=== PATIENT | male | born 1950 | race Caucasian/White ===

== ENCOUNTER 2021-03-12 17:18 | Inpatient (IN) | payer OTHER, MEDICARE, SELFPAY ==
[2021-03-12] VITALS (14 sets, daily range): BP systolic 165–189; BP diastolic 81–101; PULSE 87–104; RESP 16–24; TEMP 36.6–37.2; O2SAT 93–100; BMI 29.0; BMI 27.6
--- NOTE | 2021-03-12 18:11 | EKG12_ITS ---
Test Reason : AM EKG Blood Pressure : / mmHG Vent. Rate : 071 BPM Atrial Rate : 071 BPM P-R Int : 154 ms QRS Dur : 096 ms QT Int : 424 ms P-R-T Axes : 048 000 099 degrees QTc Int : 460 ms Sinus rhythm with occasional Premature ventricular complexes Anterior infarct , age undetermined Abnormal ECG When compared with ECG of 14-MAR-2021 05:30, MANUAL COMPARISON REQUIRED, DATA IS UNCONFIRMED Confirmed by CAMILLE PENA, SETH ([id number]), continuity editor ROBERT LYON ([id number]) on 03/18/2021 8:50:43 AM Referred By: DAYNA Confirmed By:SETH OBRIEN MD
--- NOTE | 2021-03-12 18:15 | RAD_ITS ---
STUDY: X-RAY CHEST REASON FOR EXAM: Male, 70 years old. Dyspnea TECHNIQUE: Single frontal view of the chest. COMPARISON: 08/08/13. FINDINGS: Cardiac silhouette prominent. Pulmonary vascularity unremarkable. Aorta unremarkable. Minimal opacity at the medial right base may represent atelectasis versus pneumonia as clinically indicated. Prominence of the left hilum is nonspecific and may be projectional. No pleural effusions. Upper abdomen unremarkable. Osseous structures intact. No pneumothorax. RAD/Chest 1 View (Portable) IMPRESSION: Minimal opacity at the medial right base may represent atelectasis versus pneumonia as clinically indicated. Prominence of the left hilum is nonspecific and may be projectional due to rotation. Consider chest CT for further evaluation as clinically indicated. Electronically Signed: Dick Cummings MD at 18:32 EDT Tel , Service support ,
--- NOTE | 2021-03-12 18:15 | NURSING ---
NO OLD EKGS
[2021-03-12] MEDS: Ipratropium/Albuterol Sulfate 3 ML AMPUL.NEB INHALATION (18:25)
[2021-03-12 18:31] LABS: Absolute Lymphocyte Count 1.35 X10^3/uL (0.83-4.51); Absolute Neutrophil Count 5.8 X10^3/uL (2.0-7.7); Basophil# 0.06 X10^3/uL; Basophil% 0.7 % (0-1); Eosinophil# 0.36 X10^3/uL; Eosinophils% 4.4 % (0-5); Hematocrit 34.7 % (40-54); Hemoglobin 12.2 g/dL (13.0-16.5); Lymphocyte # 1.35 X10^3/ul (0.83-4.51); Lymphocyte % 16.4 % (19-41); Mean Corp Hgb Conc 35.2 g/dL (32-36); Mean Corpuscular Hgb 30.3 pg (27.0-32.0); Mean Corpuscular Volume 86.3 fL (80-94); Mean Platelet Vol. 10.7 fl (6.2-12.0); Monocyte# 0.65 X10^3/uL; Monocyte% 7.9 % (0-10); NRBC Flagged by Analyzer 0 % (0-5); Neutrophil # 5.79 X10^3/uL (2.7-7.7); Neutrophil % 70.4 % (47-70); Platelet Count 428 K/mm3 (150-450); RBC Distribution Width CV 11.7 % (11.6-14.6); RBC Distribution Width SD 36.7 fl (35.1-43.9); Red Blood Count 4.02 M/mm3 (4.6-6.2); White Blood Count 8.2 K/mm3 (4.4-11.0)
[2021-03-12 18:41] LABS: ALB/GLOB Ratio 0.8 RATIO (0.9-2.4); AST(SGOT) 13 U/L (15-37); Alanine Aminotransfer ALT/SGPT 21 U/L (16-61); Albumin, Serum 3.7 g/dL (3.2-5.0); Alkaline Phosphatase 108 U/L (45-117); Anion Gap 9 (5-15); BUN 33 mg/dL (7-18); BUN/Creat Ratio 15.3 RATIO (10-20); Calcium,Total 9.4 mg/dL (8.5-10.1); Chloride 104 mmol/L (98-107); Creatinine, Serum 2.16 mg/dL (0.70-1.30); EST Glomerular Filtration Rate 32 mL/min (>60); Est Glom Filt Rate - Afr Amer 39 mL/min (>60); Estimated Creatinine Clearance 29.91 ml/min; Globulin 4.5 g/dL (2.2-4.2); Glucose 258 mg/dL (74-106); Potassium 3.4 mmol/L (3.5-5.1); Protein, Total 8.2 g/dL (6.4-8.2); Sodium Level 136 mmol/L (136-145)
--- NOTE | 2021-03-12 21:13 | PCM.HP.STD ---
HPI - General General Date of Admission: 03/12/21 Chief Complaint: Shortness of breath HPI Narrative ROSI CORNELIUS, is a 70 M with a significant history of hypertension and diabetes who presents with 3 to 4-day history of progressively worsening shortness of breath on exertion. On the day of presentation he also had a transient left sided chest pain that he describes as noticeable and nonradiating. He denies fatigue; orthopnea; paroxysmal nocturnal dyspnea; anemia; and weight changes. He went to his PCPs office and he was instructed to come to the emergency department. [facility] Medical History Diabetes Hypertension Non-smoker Home Medications metformin 500 mg PO DAILY 03/12/21 [History Last Taken Unknown] Allergy/AdvReac Type Severity Reaction Status Date / Time Sulfa (Sulfonamide Allergy Rash Verified 03/12/21 17:24 Antibiotics) Surgical History History of herniorrhaphy Social History Smoking Status: Never smoker ROS ROS Narrative 12 point review of system is negative except as stated in HPI. Vital Signs Vital Signs Vital Signs: 03/12/21 17:19 03/12/21 17:24 03/12/21 17:27 Temperature 98.2 F Temperature Source Oral Pulse Rate 99 95 Respiratory Rate 22 H 24 H Respiratory Effort Normal Respiratory Depth Shallow Respiratory Pattern Tachypnea Blood Pressure 166/88 H 166/88 H Blood Pressure Mean 114 114 Pulse Ox 96 96 Oxygen Delivery Method Room Air Room Air Room Air 03/12/21 18:25 03/12/21 18:28 03/12/21 18:29 Temperature Temperature Source Pulse Rate 91 98 Respiratory Rate 21 H 16 Respiratory Effort Respiratory Depth Respiratory Pattern Blood Pressure 165/83 H Blood Pressure Mean 110 Pulse Ox 97 100 Oxygen Delivery Method Room Air 03/12/21 18:45 03/12/21 19:48 03/12/21 20:59 Temperature 98.5 F 98.9 F 97.9 F Temperature Source Oral Temporal Temporal Pulse Rate 89 87 87 Respiratory Rate 17 16 16 Respiratory Effort Respiratory Depth Respiratory Pattern Blood Pressure 167/81 H 166/85 H 169/87 H Blood Pressure Mean 109 112 114 Pulse Ox 94 93 98 Oxygen Delivery Method Room Air Room Air Room Air Physical Exam Narrative Alert and oriented x3 Nontraumatic; normocephalic Lung clear to auscultate Tachycardia; heart sounds S1-S2. No murmur, gallop or rubs. Abdomen bowel sounds present soft, nontender nondistended Extremity without edema cyanosis or clubbing. Lab / Micro Data Result Diagrams: 03/12/21 17:27 03/12/21 17:27 Labs: Laboratory Results - last 24 hr 03/12/21 03/12/21 03/12/21 17:27 17:27 18:25 WBC 8.2 RBC 4.02 L Hgb 12.2 L Hct 34.7 L MCV 86.3 MCH 30.3 MCHC 35.2 RDW Std Deviation 36.7 RDW Coeff of Joey 11.7 Plt Count 428 MPV 10.7 Immature Gran % (Auto) 0.200 Neut % (Auto) 70.4 H Lymph % (Auto) 16.4 L [place] % (Auto) 7.9 Eos % (Auto) 4.4 Baso % (Auto) 0.7 Absolute Neuts (auto) 5.8 Absolute Lymphs (auto) 1.35 Nucleated RBC % 0 Sodium 136 Potassium 3.4 L Chloride 104 Carbon Dioxide 23.0 Anion Gap 9 BUN 33 H Creatinine 2.16 H Estim Creat Clear Calc 29.91 Est GFR (MDRD) Af Amer 39 L Est GFR (MDRD) Non-Af 32 L BUN/Creatinine Ratio 15.3 Glucose 258 H Lactic Acid 1.0 Calcium 9.4 Total Bilirubin 0.30 AST 13 L ALT 21 Alkaline Phosphatase 108 Troponin I 0.295 H Total Protein 8.2 Albumin 3.7 Globulin 4.5 H Albumin/Globulin Ratio 0.8 L Micro: Microbiology 03/12/21 18:50 SARS-CoV-2 Antigen (Rapid) - Final Nasal Secretion Radiology Impression Chest X-Ray 03/12/21 18:15 IMPRESSION: Minimal opacity at the medial right base may represent atelectasis versus pneumonia as clinically indicated. Prominence of the left hilum is nonspecific and may be projectional due to rotation. Consider chest CT for further evaluation as clinically indicated. Electronically Signed: Dick Cummings MD at 18:32 EDT Tel , Service support , Assessment & Plan Assessment/Plan (1) Dyspnea on exertion: (2) Acute kidney injury: (3) Chest pain: QUALIFIERS: Chest pain type: unspecified Qualified Code(s): R07.9 - Chest pain, unspecified (4) Heart failure: (5) Hypertensive emergency: (6) Diabetes: PLAN: Place on a monitored bed at PCU With the latest impression of chest x-ray: Minimal opacity at the medial right base may represent atelectasis versus pneumonia as clinically indicated. Prominence of the left ilium is nonspecific and may be projectional due to rotation. Actual CXR image was independently visualized. I agree with the radiologist interpretation. However patient has no white count or fever. Unlikely pneumonia. Incentive spirometer ordered for atelectasis. Actual EKG tracing was independently visualized. EKG tracing showed Q waves in leads V1 to V3. Aspirin, full dose given at the emergency department. ASA 81 mg p.o. daily ordered We will check lipid panel. Serial cardiac enzymes ordered Stat EKG as needed for chest pain Initial troponin was in the indeterminate range. Trend troponin. Stress test in the AM if the cardiac enzymes are stable. Check echocardiogram. BNP ordered and returned elevated. Lasix 40 mg IV push x1 and then Lasix 40 mg IV push twice daily. Supplement potassium. Daily weights. Strict intake and output. Fluid restriction Trend BMP. Check D-dimer. Hypertensive emergency?hydralazine as needed ordered. Lasix as above. Diabetes mellitus Patient with hyperglycemia on presentation Metformin held. Accu-Chek Q6H with correction scale insulin ordered. DVT prophylaxis scd Visit Charges Inpatient E&M: 44602 Init Hosp L3
--- NOTE | 2021-03-12 21:23 | EDS_ITS ---
HPI History of Present Illness Chief Complaint: Shortness of Breath Informant: patient Onset/Context/Timing Onset: Days (2) Context: gradual Timing: Continuous Quality: Positive for Dyspnea on exertion Associated Symptoms Negative for cough, rhinorrhea, ear pain, fever, sore throat or chills Chest Pain: Positive for Intermittent (Patient had a sharp pain that only lasted a few seconds) Narrative Narrative: Patient presents with shortness of breath that is been getting worse over the past 2 days. Patient states his breathing is worse with any exertion. Patient states nothing seems to help with it. Patient states he did have an episode of chest pain that lasted only a few seconds. Patient describes it as sharp. Patient states he also felt lightheaded. Patient denies any cough. Patient denies any fevers or chills. Patient denies any nausea or vomiting. Patient denies any PE risk factors. PE Risk Factors: Negative for Cancer, OCP + Smoking + > 35, Prior DVT or PE, Recent immobilization, Recent surgery and Recent travel [facility] Medical History Diabetes Hypertension Non-smoker Home Medications metformin 500 mg PO DAILY 03/12/21 [History Last Taken Unknown] Allergy/AdvReac Type Severity Reaction Status Date / Time Sulfa (Sulfonamide Allergy Rash Verified 03/12/21 17:24 Antibiotics) Surgical History (Updated 03/12/21 @ 21:[address] Benedict Moore DO) History of herniorrhaphy Social History Smoking Status: Never smoker ROS ROS ED Constitutional Constitutional ED: Denies chills or fever(s) Eyes Eyes: Denies blurry vision or change in vision ENT ENT ED: Denies ear pain, rhinorrhea or sore throat Cardiovascular Cardiovascular: Reports chest pain; Denies palpitations Respiratory/Chest Respiratory/Chest: Reports dyspnea; Denies cough Gastrointestinal Gastrointestinal: Denies nausea or vomiting Genitourinary Genitourinary ED: Denies dysuria or hematuria Musculoskeletal Musculoskeletal: Denies back pain or neck pain Integumentary Denies abscess or rash Neurologic Neurologic: Denies headache(s), paresthesias or weakness Allergic/Immunologic Allergic/Immunologic ED: Denies mouth swelling or urticaria EXAM Physical Exam Const Vital Signs: 03/12/21 17:19 03/12/21 17:24 03/12/21 17:27 Temperature 98.2 F Temperature Source Oral Pulse Rate 99 95 Respiratory Rate 22 H 24 H Respiratory Effort Normal Respiratory Depth Shallow Respiratory Pattern Tachypnea Blood Pressure 166/88 H 166/88 H Blood Pressure Mean 114 114 Pulse Ox 96 96 Oxygen Delivery Method Room Air Room Air Room Air 03/12/21 18:25 03/12/21 18:28 03/12/21 18:29 Temperature Temperature Source Pulse Rate 91 98 Respiratory Rate 21 H 16 Respiratory Effort Respiratory Depth Respiratory Pattern Blood Pressure 165/83 H Blood Pressure Mean 110 Pulse Ox 97 100 Oxygen Delivery Method Room Air 03/12/21 18:45 03/12/21 19:48 03/12/21 20:59 Temperature 98.5 F 98.9 F 97.9 F Temperature Source Oral Temporal Temporal Pulse Rate 89 87 87 Respiratory Rate 17 16 16 Respiratory Effort Respiratory Depth Respiratory Pattern Blood Pressure 167/81 H 166/85 H 169/87 H Blood Pressure Mean 109 112 114 Pulse Ox 94 93 98 Oxygen Delivery Method Room Air Room Air Room Air Positive well nourished and well developed General Appearance ED: well developed HEENT Reports moist mucous membranes atraumatic Neck supple and no JVD Resp normal respiratory effort Auscultation: wheezes Cardio regular rate and regular rhythm GI non-tender and non-distended Auscultation: normoactive bowel sounds Palpation: soft Neuro oriented x3, CN's II-XII intact bilaterally and no sensory deficits noted Sensorium / Orientation: alert Motor Exam: strength 5/5 throughout Psych mental status grossly normal MDM MDM MDM Narrative Medical decision making narrative: EKG was obtained. On my interpretation, there is a normal sinus rhythm with a rate of 98. There are nonspecific ST-T wave changes in I, aVL, V5, and V6. CBC was within normal limits. Comprehensive metabolic profile showed an elevated creatinine of 2.16 and BUN of 33. Troponin was elevated at 0.295. Lactate was normal. Portable chest x-ray was obtained. There is 1 view. On my interpretation, there is atelectasis versus infiltrate in the right base. Radiologist also interpreted the x-ray and agrees. Patient denies any history of kidney injuries. Patient was advised of his findings. I recommended admission to the hospital. Patient is agreeable with this. Case was discussed with the hospitalist. He will be in to evaluate the patient and admit the patient to his service. Patient understood and was agreeable with the plan. All questions were answered. Lab Data Attestation: I reviewed the patient's lab results. Labs: Laboratory Results - last 24 hr 03/12/21 03/12/21 03/12/21 17:27 17:27 18:25 WBC 8.2 RBC 4.02 L Hgb 12.2 L Hct 34.7 L MCV 86.3 MCH 30.3 MCHC 35.2 RDW Std Deviation 36.7 RDW Coeff of Joey 11.7 Plt Count 428 MPV 10.7 Immature Gran % (Auto) 0.200 Neut % (Auto) 70.4 H Lymph % (Auto) 16.4 L [place] % (Auto) 7.9 Eos % (Auto) 4.4 Baso % (Auto) 0.7 Absolute Neuts (auto) 5.8 Absolute Lymphs (auto) 1.35 Nucleated RBC % 0 Sodium 136 Potassium 3.4 L Chloride 104 Carbon Dioxide 23.0 Anion Gap 9 BUN 33 H Creatinine 2.16 H Estim Creat Clear Calc 29.91 Est GFR (MDRD) Af Amer 39 L Est GFR (MDRD) Non-Af 32 L BUN/Creatinine Ratio 15.3 Glucose 258 H Lactic Acid 1.0 Calcium 9.4 Total Bilirubin 0.30 AST 13 L ALT 21 Alkaline Phosphatase 108 Troponin I 0.295 H Total Protein 8.2 Albumin 3.7 Globulin 4.5 H Albumin/Globulin Ratio 0.8 L Radiography Chest X-Ray - ED: 1 View, Read by ED Physician, Read by Radiologist and - (Atelectasis versus infiltrate in the right base) Diagnostic Testing: Radiology Impression Chest X-Ray 03/12/21 18:15 IMPRESSION: Minimal opacity at the medial right base may represent atelectasis versus pneumonia as clinically indicated. Prominence of the left hilum is nonspecific and may be projectional due to rotation. Consider chest CT for further evaluation as clinically indicated. Electronically Signed: Dick Cummings MD at 18:32 EDT Tel , Service support , EKG Initial EKG: Attestation: I personally reviewed and interpreted this EKG as follows: Interpretation: Sinus Rhythm (98) and Non-Specific ST Changes Prior: No Prior Treatment and Re-Evaluation Vital Sign Attestation:: Vital signs were reviewed prior to admission. Vital signs are stable. Discharge Plan Triage Chief Complaint: Shortness of Breath ED Provider: Benedict Moore Dx/Rx/DC Orders Clinical Impression: Acute kidney injury, Elevated troponin Primary Care Provider: Brayden Marley Disposition Disposition: Acute Care [facility]
[2021-03-12 21:34] LABS: BNP,B-Type NATRIURETIC PEPTIDE 430.1 pg/mL (0-100)
[2021-03-12] MEDS: Aspirin 81 MG TAB.CHEW 324 MG PO (22:02)
[2021-03-12 22:26] LABS: D-Dimer Quantitative (DVT/PE) 1.01 FEU/ug/m (0.27-0.49)
--- NOTE | 2021-03-12 22:47 | ECHOCS_ITS ---
Reason For Study: DYSPNEA/SOB Procedure This was a 2D Doppler, Color Flow transthoracic echocardiogram. The study was technically difficult. Exam performed portable in patient room. Left Ventricle Normal LV size. The estimated ejection fraction is 60 %. No evidence for diastolic dysfunction. No regional wall motion abnormalities noted. Right Ventricle Normal RV size. Normal systolic function. Atria Normal left atrium. Normal right atrium. No doppler evidence for ASD. Mitral Valve There is no mitral valve stenosis. Mild (1+) mitral valve insufficiency. Tricuspid Valve There is no tricuspid stenosis. Trivial tricuspid valve insufficiency. Unable to estimate RV systolic pressure due to insufficient tricuspid regurgitant envelope. Aortic Valve Trisinus/trileaflet aortic valve. There is no aortic stenosis. No aortic valve insufficiency. Pulmonic Valve There is no pulmonic valvular stenosis. No pulmonic valve insufficiency. Great Vessels Normal aortic root. Pericardium/Pleural No pericardial effusion. Medication Diluted definity 4ml given slow IV push to enhance endocardial definition. MMode/2D Measurements & Calculations LVIDd: 4.9 cm IVSd: 1.3 cm Ao root diam: 3.1 cm LVIDs: 3.6 cm LVPWd: 1.3 cm RVDd: 3.7 cm FS: 26.7 % LAV(MOD-bp): 40.8 ml LVAd ap4: 33.9 cm2 SV(MOD-sp4): 47.6 ml LAV(MOD-bp) Indexed: 20.8 ml/m2 LVLd ap4: 8.5 cm LAV(MOD-sp2): 53.1 ml EDV(MOD-sp4): 111.6 ml LAV(MOD-sp4): 31.0 ml EDV(sp4-el): 115.2 ml LVAs ap4: 24.7 cm2 LVLs ap4: 8.1 cm ESV(MOD-sp4): 64.0 ml ESV(sp4-el): 63.7 ml EF(MOD-sp4): 42.6 % EF(sp4-el): 44.7 % SV(sp4-el): 51.5 ml LA A4 area: 14.7 cm2 LA dimension(2D): 4.1 cm RA A4 area: 12.7 cm2 Time Measurements MV dec time: 0.21 sec Doppler Measurements & Calculations MV E max leandro: 91.9 cm/sec Lat Peak E' Leandro: 10.6 cm/sec Med Peak E' Leandro: 8.8 cm/sec MV A max leandro: 82.8 cm/sec E/E' lat: 8.7 E/E' med: 10.4 MV E/A: 1.1 Ao V2 max: 122.2 cm/sec LV V1 max: 85.5 cm/sec PA V2 max: 94.5 cm/sec Ao max P.0 mmHg LV V1 max P.9 mmHg TR max leandro: 330.9 cm/sec TR max P.8 mmHg ECHO/Echo Complete W/ Contrast Interpretation Summary The estimated ejection fraction is 60 %. No evidence for diastolic dysfunction. Mild (1+) mitral valve insufficiency. The study was technically difficult. Contrast injection was performed. Ordering Physician: Roberto Fernandez Referring Physician: KATHY BERNABE Performed By: Rolanda Caro RDCS
--- NOTE | 2021-03-12 22:47 | EKG12_ITS ---
Test Reason : DYSRHYTHMIA Blood Pressure : / mmHG Vent. Rate : 085 BPM Atrial Rate : 085 BPM P-R Int : 150 ms QRS Dur : 088 ms QT Int : 394 ms P-R-T Axes : 030 012 143 degrees QTc Int : 468 ms Normal sinus rhythm Left ventricular hypertrophy with repolarization abnormality Abnormal ECG When compared with ECG of 12-MAR-2021 17:25, MANUAL COMPARISON REQUIRED, DATA IS UNCONFIRMED Confirmed by CHARLES PENA, SONYA ([id number]), film or videotape editor ROBERT LYON ([id number]) on 03/17/2021 1:24:27 PM Referred By: OKSANA Confirmed By:ABEBE SOTO MD
[2021-03-12] MEDS: Furosemide 40 MG/4 ML Vial IV (23:18)
[2021-03-12] MEDS: 0.9% Saline Lock 10 ML Syringe IV (23:19)
[2021-03-12] MEDS: Potassium Chloride Oral Tablet 20 MEQ 40 MEQ PO (23:20)
[2021-03-12] MEDS: hydrALAZINE 20 MG/ML Vial 5 MG IV (23:20)
[2021-03-12] MEDS: Insulin Lispro 100 UNIT/ML INSULN.PEN SC (23:34)
[2021-03-12 23:35] LABS: Bedside Glucose 202 mg/dL (70-110)
[2021-03-13] VITALS (13 sets, daily range): BP systolic 152–170; BP diastolic 78–94; PULSE 71–96; RESP 17–18; TEMP 36.6–37; O2SAT 93–100
--- NOTE | 2021-03-13 01:13 | EKG12_ITS ---
Test Reason : AM EKG Blood Pressure : / mmHG Vent. Rate : 067 BPM Atrial Rate : 067 BPM P-R Int : 160 ms QRS Dur : 088 ms QT Int : 436 ms P-R-T Axes : 034 005 116 degrees QTc Int : 460 ms Sinus rhythm with occasional Premature ventricular complexes Left ventricular hypertrophy Inferior infarct , age undetermined Septal MO, age undetermined, cannot be excluded Nonspecific ST and T wave abnormality Abnormal ECG Confirmed by HENRIETTA PENA, CHANTE ([id number]), editor in chief newspaper ROBERT LYON ([id number]) on 03/19/2021 9:12:47 AM Referred By: OKSANA Confirmed By:CHANTE SHRESTHA MD
[2021-03-13 05:06] LABS: Absolute Lymphocyte Count 1.55 X10^3/uL (0.83-4.51); Absolute Neutrophil Count 4.6 X10^3/uL (2.0-7.7); Basophil# 0.07 X10^3/uL; Eosinophil# 0.36 X10^3/uL; Hematocrit 30.7 % (40-54); Hemoglobin 10.6 g/dL (13.0-16.5); Lymphocyte # 1.55 X10^3/ul (0.83-4.51); Lymphocyte % 21.6 % (19-41); Mean Corp Hgb Conc 34.5 g/dL (32-36); Mean Corpuscular Hgb 29.7 pg (27.0-32.0); Monocyte# 0.57 X10^3/uL; Monocyte% 7.9 % (0-10); NRBC Flagged by Analyzer 0 % (0-5); Neutrophil # 4.61 X10^3/uL (2.7-7.7); Neutrophil % 64.1 % (47-70); Platelet Count 344 K/mm3 (150-450); RBC Distribution Width CV 11.7 % (11.6-14.6); RBC Distribution Width SD 36.5 fl (35.1-43.9); Red Blood Count 3.57 M/mm3 (4.6-6.2); White Blood Count 7.2 K/mm3 (4.4-11.0)
[2021-03-13 05:24] LABS: Anion Gap 8 (5-15); BUN 31 mg/dL (7-18); BUN/Creat Ratio 16.6 RATIO (10-20); Calcium,Total 8.8 mg/dL (8.5-10.1); Chloride 108 mmol/L (98-107); Cholesterol 211 mg/dL (200); Creatinine, Serum 1.87 mg/dL (0.70-1.30); EST Glomerular Filtration Rate 38 mL/min (>60); Est Glom Filt Rate - Afr Amer 46 mL/min (>60); Estimated Creatinine Clearance 34.55 ml/min; Glucose 175 mg/dL (74-106); High Density Lipoprotein 32 mg/dL; Potassium 4.1 mmol/L (3.5-5.1); Sodium Level 140 mmol/L (136-145); Triglycerides 283 mg/dL; Very Low Density Lipoprotein 57 mg/dL (5-40)
[2021-03-13] MEDS: Aspirin E.C. 81 MG Tablet PO (06:34)
[2021-03-13 06:41] LABS: Bedside Glucose 189 mg/dL (70-110)
--- NOTE | 2021-03-13 08:15 | CT_ITS ---
STUDY: CTA CHEST REASON FOR EXAM: Male, 70 years old. suspect pe RADIATION DOSAGE (If Supplied By Facility): CTDIvol = ( 11.82 ) mGy, DLP = ( 448.32 ) mGycm TECHNIQUE: The examination was performed with the intravenous administration of IV 100mL Isovue-370. Post-processing of the angiographic images was performed, with multiplanar reformation and 3D reconstruction. Individualized dose optimization techniques were used for this CT. COMPARISON: None. FINDINGS: Normal enhancement of the main pulmonary artery and right and left pulmonary arteries. Normal enhancement of the bilateral peripheral pulmonary arteries. There is no demonstrated pulmonary embolism. There is atherosclerotic calcification of the aortic arch with tortuosity. There is no demonstrated aortic dissection. Normal heart and pericardium. There are calcifications of the coronary arteries. Normal mediastinum. Normal hilar regions. Normal visualized trachea and bronchi. The lungs are well expanded. Normal pulmonary parenchyma. Small bilateral pleural effusions. Normal chest wall structures. Normal osseous structures. Normal visualized upper abdomen. CT/CTA Chest W/WO Contrast IMPRESSION: 1. No central or segmental pulmonary embolism. 2. Trace bilateral pleural effusions. Electronically Signed: Jose G Thorne MD ([place]) at 9:29 EDT , Service support ,
[2021-03-13 08:49] LABS: Thyroid Stim Hormone (TSH) 3.95 uIU/mL (0.358-3.74)
[2021-03-13] MEDS: Potassium Chloride Oral Tablet 20 MEQ 40 MEQ PO (09:19)
[2021-03-13] MEDS: Furosemide 40 MG/4 ML Vial IV ×2 (09:20→18:07)
[2021-03-13] MEDS: 0.9% Saline Lock 10 ML Syringe IV ×2 (09:20→18:07)
[2021-03-13] MEDS: Enoxaparin 30 MG/0.3 ML Syringe SC (09:20)
[2021-03-13] MEDS: hydrALAZINE 20 MG/ML Vial 5 MG IV ×2 (09:20→18:07)
[2021-03-13] MEDS: Insulin Lispro 100 UNIT/ML INSULN.PEN SC ×3 (10:51→21:32)
[2021-03-13 10:56] LABS: Bedside Glucose 190 mg/dL (70-110)
--- NOTE | 2021-03-13 11:25 | CASEMGMT ---
ROSALVA CHARLES assessment: Face to Face with patient for initial transition planning/care coordination assessment. ROSALVA CHARLES introduced self and role at [facility], pt voices understanding and consents to assessment. Pt is sitting up in bed in no distress on 2L nc. Pt is A/Ox4 and answers all questions appropriately. Care providers, pharmacy, and demographics verified. Presentation: Pt went to PCP for SOB and EKG showed [place], sent to ED Admitting dx: HF PCP: Chuck REED Specialists: Pt states no current specialists. [place] [place] [place] Living Will/HPOA: Pt states has LW/HPOA and is aware that they are not on file at [facility]. Pt states his son, Traci Jacques, is HPOA. LNOK: Traci Jacuqes, son/HPOA Living Arrangements: Pt states lives alone in mobile home with 3 steps in and states no concerns at home. Pt states is independent with ADL's. Transportation: Pt states drives self and states no transportation concerns. DME/HHC: Pt states no current DME or need for any. Pt states no hx of HHC or SNF in the past. Pt states no concerns with going home at time of discharge. Pt is retired. Pt states does not smoke cigarettes or drink ETOH. Pt states no further concerns/needs. CM to follow for any further discharge planning/needs. Advised pt to ask for CM if any further questions/concerns/needs arise, voices understanding. Pt Goal: Home Plan[place] ROSALVA CHARLES
--- NOTE | 2021-03-13 12:03 | PCM.PN.HOSP ---
Documented by User: Sherice Rausch MARKETING OPERATIONS MANAGER, MARKETING OPERATIONS MANAGER-C 03/13/21 12:15 Subjective Subjective: Patient seen and examined. Reports improvement in shortness of breath. Remains on supplemental oxygen. Denies chest pain. Objective Data Objective Data Vital Signs: Vital Signs Temp Pulse Resp BP Pulse Ox 97.9 F 82 18 170/91 H 99 03/13/21 09:15 03/13/21 09:20 03/13/21 09:15 03/13/21 09:20 03/13/21 09:15 Oxygen Flow Rate (L/min) 2 Oxygen Delivery Method Nasal Cannula Weight: 179 lb 3.773 oz Body Mass Index (BMI) 27.6 Intake & Output: Intake and Output for Last 24 Hours 03/11/21 03/12/21 03/13/21 23:59 23:59 23:59 Intake Total 50 / 50 0 / 0 Output Total 1250 / 1250 Balance 50 / 50 -1250 / -1250 Lab / Micro Data Result Diagrams: 03/13/21 05:00 03/13/21 05:00 Labs: Laboratory Results - last 24 hr 03/12/21 03/12/21 03/12/21 17:27 17:27 17:27 WBC 8.2 RBC 4.02 L Hgb 12.2 L Hct 34.7 L MCV 86.3 MCH 30.3 MCHC 35.2 RDW Std Deviation 36.7 RDW Coeff of Joey 11.7 Plt Count 428 MPV 10.7 Immature Gran % (Auto) 0.200 Neut % (Auto) 70.4 H Lymph % (Auto) 16.4 L [place] % (Auto) 7.9 Eos % (Auto) 4.4 Baso % (Auto) 0.7 Absolute Neuts (auto) 5.8 Absolute Lymphs (auto) 1.35 Nucleated RBC % 0 D-Dimer Quant (PE/DVT) 1.01 H* Sodium 136 Potassium 3.4 L Chloride 104 Carbon Dioxide 23.0 Anion Gap 9 BUN 33 H Creatinine 2.16 H Estim Creat Clear Calc 29.91 Est GFR (MDRD) Af Amer 39 L Est GFR (MDRD) Non-Af 32 L BUN/Creatinine Ratio 15.3 Glucose 258 H Lactic Acid Calcium 9.4 Magnesium Total Bilirubin 0.30 AST 13 L ALT 21 Alkaline Phosphatase 108 Troponin I 0.295 H B-Natriuretic Peptide Total Protein 8.2 Albumin 3.7 Globulin 4.5 H Albumin/Globulin Ratio 0.8 L Triglycerides Cholesterol LDL Cholesterol VLDL Cholesterol HDL Cholesterol TSH POC Glucose 03/12/21 03/12/21 03/12/21 18:20 18:25 23:02 WBC RBC Hgb Hct MCV MCH MCHC RDW Std Deviation RDW Coeff of Joey Plt Count MPV Immature Gran % (Auto) Neut % (Auto) Lymph % (Auto) [place] % (Auto) Eos % (Auto) Baso % (Auto) Absolute Neuts (auto) Absolute Lymphs (auto) Nucleated RBC % D-Dimer Quant (PE/DVT) Sodium Potassium Chloride Carbon Dioxide Anion Gap BUN Creatinine Estim Creat Clear Calc Est GFR (MDRD) Af Amer Est GFR (MDRD) Non-Af BUN/Creatinine Ratio Glucose Lactic Acid 1.0 Calcium Magnesium Total Bilirubin AST ALT Alkaline Phosphatase Troponin I 0.326 H B-Natriuretic Peptide 430.1 H Total Protein Albumin Globulin Albumin/Globulin Ratio Triglycerides Cholesterol LDL Cholesterol VLDL Cholesterol HDL Cholesterol TSH POC Glucose 03/12/21 03/13/21 03/13/21 23:30 01:45 05:00 WBC RBC Hgb Hct MCV MCH MCHC RDW Std Deviation RDW Coeff of Joey Plt Count MPV Immature Gran % (Auto) Neut % (Auto) Lymph % (Auto) [place] % (Auto) Eos % (Auto) Baso % (Auto) Absolute Neuts (auto) Absolute Lymphs (auto) Nucleated RBC % D-Dimer Quant (PE/DVT) Sodium 140 Potassium 4.1 Chloride 108 H Carbon Dioxide 24.0 Anion Gap 8 BUN 31 H Creatinine 1.87 H Estim Creat Clear Calc 34.55 Est GFR (MDRD) Af Amer 46 L Est GFR (MDRD) Non-Af 38 L BUN/Creatinine Ratio 16.6 Glucose 175 H Lactic Acid Calcium 8.8 Magnesium Total Bilirubin AST ALT Alkaline Phosphatase Troponin I 0.322 H 0.304 H B-Natriuretic Peptide Total Protein Albumin Globulin Albumin/Globulin Ratio Triglycerides 283 H Cholesterol 211 H LDL Cholesterol 122 VLDL Cholesterol 57 H HDL Cholesterol 32 L TSH POC Glucose 202 H 03/13/21 03/13/21 03/13/21 05:00 05:00 06:33 WBC 7.2 RBC 3.57 L Hgb 10.6 L Hct 30.7 L MCV 86.0 MCH 29.7 MCHC 34.5 RDW Std Deviation 36.5 RDW Coeff of Joey 11.7 Plt Count 344 MPV 10.0 Immature Gran % (Auto) 0.400 Neut % (Auto) 64.1 Lymph % (Auto) 21.6 [place] % (Auto) 7.9 Eos % (Auto) 5.0 Baso % (Auto) 1.0 Absolute Neuts (auto) 4.6 Absolute Lymphs (auto) 1.55 Nucleated RBC % 0 D-Dimer Quant (PE/DVT) Sodium Potassium Chloride Carbon Dioxide Anion Gap BUN Creatinine Estim Creat Clear Calc Est GFR (MDRD) Af Amer Est GFR (MDRD) Non-Af BUN/Creatinine Ratio Glucose Lactic Acid Calcium Magnesium 2.0 Total Bilirubin AST ALT Alkaline Phosphatase Troponin I B-Natriuretic Peptide Total Protein Albumin Globulin Albumin/Globulin Ratio Triglycerides Cholesterol LDL Cholesterol VLDL Cholesterol HDL Cholesterol TSH 3.95 H POC Glucose 189 H 03/13/21 10:50 WBC RBC Hgb Hct MCV MCH MCHC RDW Std Deviation RDW Coeff of Joey Plt Count MPV Immature Gran % (Auto) Neut % (Auto) Lymph % (Auto) [place] % (Auto) Eos % (Auto) Baso % (Auto) Absolute Neuts (auto) Absolute Lymphs (auto) Nucleated RBC % D-Dimer Quant (PE/DVT) Sodium Potassium Chloride Carbon Dioxide Anion Gap BUN Creatinine Estim Creat Clear Calc Est GFR (MDRD) Af Amer Est GFR (MDRD) Non-Af BUN/Creatinine Ratio Glucose Lactic Acid Calcium Magnesium Total Bilirubin AST ALT Alkaline Phosphatase Troponin I B-Natriuretic Peptide Total Protein Albumin Globulin Albumin/Globulin Ratio Triglycerides Cholesterol LDL Cholesterol VLDL Cholesterol HDL Cholesterol TSH POC Glucose 190 H Micro: Microbiology 03/12/21 18:50 Nasal Secretion SARS-CoV-2 Antigen (Rapid) - Final Radiography Diagnostic Testing: Radiology Impression Chest X-Ray 03/12/21 18:15 IMPRESSION: Minimal opacity at the medial right base may represent atelectasis versus pneumonia as clinically indicated. Prominence of the left hilum is nonspecific and may be projectional due to rotation. Consider chest CT for further evaluation as clinically indicated. Electronically Signed: Dick Cummings MD at 18:32 EDT Tel , Service support , Chest CTA 03/13/21 08:15 IMPRESSION: 1. No central or segmental pulmonary embolism. 2. Trace bilateral pleural effusions. Electronically Signed: Jose G Thorne MD ([place]) at 9:29 EDT , Service support , Physical Exam Const alert, oriented x3 and no apparent distress Orientation / Consciousness: awake, oriented to person, oriented to place and oriented to time HEENT normocephalic and moist oral mucous membranes Eyes PERRL, EOMs intact bilaterally and conjunctivae normal Neck no lymphadenopathy Resp normal respiratory effort and clear to auscultation bilaterally Cardio regular rate, regular rhythm and no murmurs Peripheral Pulses: pulses 2+ throughout GI normal to inspection, nondistended, normoactive bowel sounds, non-tender and non-distended Extremity normal to inspection Skin no rashes or lesions noted Lesions: no lesions Rashes: no rashes Trauma: no lacerations or abrasions Neuro oriented x3 Sensorium / Orientation: awake and alert Psych affect normal Assessment & Plan Assessment/Plan (1) Acute kidney injury: (2) Dyspnea on exertion: PLAN: 1. Acute CHF, unknown subtype-BNP 430. CTA negative for PE, trace bilateral pleural effusions. IV Lasix. Strict I&O. Daily weight. Echocardiogram pending. Continue supplement oxygen to maintain O2 at above 90%. Not documented to be hypoxic. 2. Elevated troponin-plan for stress test in a.m. following further diuresis. Continue aspirin. 3. Hypertension, markedly elevated-HCTZ/lisinopril held due to acute kidney injury. Continue amlodipine. As needed hydralazine for systolic blood pressure greater than 160 4. Acute kidney injury-improving with diuresis, trend BMP. 5. Type 2 diabetes mellitus-oral regimen on hold. Accu-Cheks with sliding scale insulin. 6. Hyperlipidemia-continue statin. DVT prophylaxis- Lovenox sc This patient was seen by KIMBERLY Hernandez under the supervision of Dr. Gonzalez. Documented by User: Dr. Lynn Gonzalez MD 03/13/21 16:14 Objective Data Lab / Micro Data Result Diagrams: 03/13/21 05:00 03/13/21 05:00
[2021-03-13] MEDS: amLODIPine 10 MG Tablet PO (12:31)
--- NOTE | 2021-03-13 15:48 | CASEMGMT ---
According to [employer]'s website, the following tertiary facilities are in network: [facility], [facility], [place], [facility], [facility], [facility], [facility] and .
[2021-03-13 16:45] LABS: Bedside Glucose 162 mg/dL (70-110)
[2021-03-13 18:00] LABS: T4 Free Direct 0.95 ng/dL (0.76-1.46)
[2021-03-13] MEDS: Atorvastatin Calcium 20 MG Tablet PO (21:32)
[2021-03-13] MEDS: Carvedilol 6.25 MG Tablet PO (21:32)
[2021-03-13 21:40] LABS: Bedside Glucose 174 mg/dL (70-110)
[2021-03-14] VITALS (12 sets, daily range): BP systolic 122–155; BP diastolic 59–73; PULSE 57–80; RESP 15–18; TEMP 36.4–36.8; O2SAT 94–96
--- NOTE | 2021-03-14 05:55 | EKG12_ITS ---
Test Reason : AM EKG Blood Pressure : / mmHG Vent. Rate : 084 BPM Atrial Rate : 084 BPM P-R Int : 160 ms QRS Dur : 092 ms QT Int : 404 ms P-R-T Axes : 028 005 119 degrees QTc Int : 477 ms Sinus rhythm with occasional Premature ventricular complexes Left ventricular hypertrophy with repolarization abnormality Inferior infarct , age undetermined Anteroseptal infarct , age undetermined Abnormal ECG When compared with ECG of 12-MAR-2021 22:57, MANUAL COMPARISON REQUIRED, DATA IS UNCONFIRMED Confirmed by CHARLES PENA, SONYA ([id number]), development editor ROBERT LYON ([id number]) on 03/17/2021 1:24:14 PM Referred By: OKSANA Confirmed By:ABEBE SOTO MD
[2021-03-14] MEDS: Aspirin E.C. 81 MG Tablet PO (06:25)
[2021-03-14] MEDS: Lisinopril 40 MG Tablet PO (06:25)
[2021-03-14] MEDS: 0.9% Saline Lock 10 ML Syringe IV (06:26)
[2021-03-14 06:41] LABS: Bedside Glucose 182 mg/dL (70-110)
[2021-03-14 06:56] LABS: Absolute Lymphocyte Count 1.38 X10^3/uL (0.83-4.51); Absolute Neutrophil Count 5.2 X10^3/uL (2.0-7.7); Basophil# 0.07 X10^3/uL; Basophil% 0.9 % (0-1); Eosinophil# 0.35 X10^3/uL; Eosinophils% 4.6 % (0-5); Hematocrit 33.1 % (40-54); Hemoglobin 11.3 g/dL (13.0-16.5); Lymphocyte # 1.38 X10^3/ul (0.83-4.51); Lymphocyte % 18.1 % (19-41); Mean Corp Hgb Conc 34.1 g/dL (32-36); Mean Corpuscular Hgb 29.4 pg (27.0-32.0); Mean Platelet Vol. 10.2 fl (6.2-12.0); Monocyte# 0.61 X10^3/uL; NRBC Flagged by Analyzer 0 % (0-5); Neutrophil # 5.18 X10^3/uL (2.7-7.7); Platelet Count 352 K/mm3 (150-450); RBC Distribution Width SD 37.6 fl (35.1-43.9); Red Blood Count 3.85 M/mm3 (4.6-6.2); White Blood Count 7.6 K/mm3 (4.4-11.0)
[2021-03-14 07:24] LABS: ALB/GLOB Ratio 0.8 RATIO (0.9-2.4); AST(SGOT) 20 U/L (15-37); Alanine Aminotransfer ALT/SGPT 20 U/L (16-61); Albumin, Serum 3.2 g/dL (3.2-5.0); Alkaline Phosphatase 85 U/L (45-117); Anion Gap 8 (5-15); BUN 34 mg/dL (7-18); BUN/Creat Ratio 14.9 RATIO (10-20); Calcium,Total 8.8 mg/dL (8.5-10.1); Chloride 105 mmol/L (98-107); Creatinine, Serum 2.28 mg/dL (0.70-1.30); EST Glomerular Filtration Rate 30 mL/min (>60); Est Glom Filt Rate - Afr Amer 36 mL/min (>60); Estimated Creatinine Clearance 28.33 ml/min; Globulin 4.1 g/dL (2.2-4.2); Glucose 176 mg/dL (74-106); Protein, Total 7.3 g/dL (6.4-8.2); Sodium Level 138 mmol/L (136-145)
--- NOTE | 2021-03-14 10:26 | CASEMGMT ---
ROSALVA CHARLES NOTE: Wesley @ [facility] transfer center given clinical update at this time. DC summary to be faxed to [phone] when pt is discharged. Katherine LEE RN CM
[2021-03-14] MEDS: Carvedilol 6.25 MG Tablet PO ×2 (10:50→20:51)
[2021-03-14] MEDS: NIFEdipine 60 MG Tablet PO (10:50)
[2021-03-14] MEDS: Potassium Chloride Oral Tablet 20 MEQ 40 MEQ PO (10:50)
[2021-03-14] MEDS: Insulin Lispro 100 UNIT/ML INSULN.PEN SC ×3 (11:13→20:52)
[2021-03-14 11:20] LABS: Bedside Glucose 204 mg/dL (70-110)
--- NOTE | 2021-03-14 12:11 | PCM.CONS.C ---
Assessment & Plan Assessment/Plan (1) Chest pain: QUALIFIERS: Chest pain type: unspecified Qualified Code(s): R07.9 - Chest pain, unspecified PLAN: We will proceed with coronary angiography. Risks and benefits explained to the patient. (2) Dyspnea on exertion: PLAN: Proceeding with coronary angiography. (3) Elevated troponin: HPI Consult Data Date of Consult: 03/14/21 HPI Narrative Reason for Consultation: chf, Elevated troponin HPI Narrative: ROSI CORNELIUS, is a 70 M who presents with shortness of breath and atypical chest pain. He was felt to be in CHF and responded well to diuresis. His shortness of breath improved. He underwent stress testing which revealed moderate ischemia involving the apex. Review of systems: All systems reviewed. All else is negative except that in the HPI [facility] Medical History Chest pain Diabetes Hypertension Non-smoker Non-smoker Home Medications metformin 500 mg PO BID 03/12/21 [History Last Taken Unknown] amlodipine 10 mg PO DAILY 03/13/21 [History Last Taken Unknown] atorvastatin 20 mg PO QHS 03/13/21 [History Last Taken Unknown] glipizide 10 mg PO BID 03/13/21 [History Last Taken Unknown] hydrochlorothiazide 25 mg PO DAILY 03/13/21 [History Last Taken Unknown] lisinopril 40 mg PO DAILY 03/13/21 [History Last Taken Unknown] nifedipine 60 mg PO DAILY 03/13/21 [History Last Taken Unknown] Allergy/AdvReac Type Severity Reaction Status Date / Time Sulfa (Sulfonamide Allergy Rash Verified 03/12/21 17:24 Antibiotics) Surgical History History of herniorrhaphy Social History Smoking Status: Never smoker Physical Exam Const alert and oriented x3 Orientation / Consciousness: awake HEENT normocephalic Neck supple Chest inspection of chest normal Resp clear to auscultation bilaterally Extremity no pedal edema Neuro oriented x3 Psych mental status grossly normal Charges/Coding Visit Charges Inpatient E&M: 54948 Init Hosp L2
--- NOTE | 2021-03-14 12:27 | STRESSREP ---
Stress Test Report Date: 03/14/2021 Procedure: Exercise tolerance test/imaging study Indications: Chest pain, shortness of breath Consent: Per the patient Procedure: The patient exercised on a Obi protocol for 4 minutes and 8 seconds achieving a peak heart rate of 144 bpm (97% predicted maximal heart rate) with a peak blood pressure 162/82 mmHg and a peak MET capacity of 5.9 METs. The baseline ECG demonstrated normal sinus rhythm, possible prior anterior VA. The peak exercise ECG demonstrated about 1-[address] depressions in the inferior and lateral leads suggestive of ischemia. EKG during recovery revealed return of ST segments to baseline [There were no cardiac dysrhythmias pretest, during exercise, or recovery]. The functional capacity was considered normal for age. There was [no complaint of chest discomfort during exercise or recovery]. The examination was discontinued secondary to dyspnea. Impression: 1. Technically adequate (percent predicted maximal heart rate greater than 85%) exercise tolerance test 2. Stress test is positive for exercise-induced EKG changes of ischemia 3. The test test is negative for exercise-induced chest pain 4. Functional capacity is normal for age 5. Nuclear images pending Myocardial perfusion imaging study: Technique: The patient was injected with 12 mCi of technetium 99m Cardiolite and subsequently rest SPECT Cardiolite nuclear imaging was obtained in the horizontal long, vertical long, and short axis views. The patient exercised on a Obi protocol. Please see above for details. The patient was injected with 36 mCi of technetium 99m Cardiolite and subsequently stress SPECT Cardiolite nuclear imaging was obtained in the horizontal long, vertical long, and short axis views. A gated Cardiolite study at peak stress was obtained. Interpretation: Rest and stress SPECT Cardiolite nuclear imaging status post realignment, normalization, and attenuation correction, demonstrates minimal decrease in the radioisotope uptake in the apex on the rest images. On the stress images there is moderate decrease in the radioisotope uptake in the apex suggestive of ischemia in this region. The gated Cardiolite study demonstrates apical hypokinesis. The reported LVEF is 41%. Impression: 1. There is evidence of apical ischemia. 2. The gated Cardiolite study reports an LVEF of 41%. This note was generated with [employer] software. It may contain incorrect words, spelling, and punctuation that were not noted in checking the note before signing.
--- NOTE | 2021-03-14 14:21 | PN.HOSP_ITS ---
Documented by User: Sherice Rausch NP, BOAT TENDER-C 03/14/21 14:28 Subjective Subjective: Patient seen and examined. Denies further shortness of breath. Denies chest pain. Patient underwent stress test which was reported to be abnormal. Objective Data Objective Data Vital Signs: Vital Signs Temp Pulse Resp BP Pulse Ox 97.6 F L 66 18 155/73 H 95 03/14/21 08:28 03/14/21 08:28 03/14/21 08:28 03/14/21 08:28 03/14/21 08:28 Oxygen Flow Rate (L/min) 2 Oxygen Delivery Method Nasal Cannula Weight: 176 lb 5.917 oz Body Mass Index (BMI) 27.6 Intake & Output: Intake and Output for Last 24 Hours 03/12/21 03/13/21 03/14/21 23:59 23:59 23:59 Intake Total 50 / 50 555 / 555 290 / 290 Output Total 3150 / 3150 350 / 350 Balance 50 / 50 -2595 / -2595 -60 / -60 Lab / Micro Data Result Diagrams: 03/14/21 06:30 03/14/21 06:30 Labs: Laboratory Results - last 24 hr 03/13/21 03/13/21 03/13/21 05:00 16:36 21:23 WBC RBC Hgb Hct MCV MCH MCHC RDW Std Deviation RDW Coeff of Joey Plt Count MPV Immature Gran % (Auto) Neut % (Auto) Lymph % (Auto) [place] % (Auto) Eos % (Auto) Baso % (Auto) Absolute Neuts (auto) Absolute Lymphs (auto) Nucleated RBC % Sodium Potassium Chloride Carbon Dioxide Anion Gap BUN Creatinine Estim Creat Clear Calc Est GFR (MDRD) Af Amer Est GFR (MDRD) Non-Af BUN/Creatinine Ratio Glucose Calcium Total Bilirubin AST ALT Alkaline Phosphatase Total Protein Albumin Globulin Albumin/Globulin Ratio Free T4 0.95 POC Glucose 162 H 174 H 03/14/21 03/14/21 03/14/21 06:29 06:30 06:30 WBC 7.6 RBC 3.85 L Hgb 11.3 L Hct 33.1 L MCV 86.0 MCH 29.4 MCHC 34.1 RDW Std Deviation 37.6 RDW Coeff of Joey 12.0 Plt Count 352 MPV 10.2 Immature Gran % (Auto) 0.400 Neut % (Auto) 68.0 Lymph % (Auto) 18.1 L [place] % (Auto) 8.0 Eos % (Auto) 4.6 Baso % (Auto) 0.9 Absolute Neuts (auto) 5.2 Absolute Lymphs (auto) 1.38 Nucleated RBC % 0 Sodium 138 Potassium 4.0 Chloride 105 Carbon Dioxide 25.0 Anion Gap 8 BUN 34 H Creatinine 2.28 H Estim Creat Clear Calc 28.33 Est GFR (MDRD) Af Amer 36 L Est GFR (MDRD) Non-Af 30 L BUN/Creatinine Ratio 14.9 Glucose 176 H Calcium 8.8 Total Bilirubin 0.40 AST 20 ALT 20 Alkaline Phosphatase 85 Total Protein 7.3 Albumin 3.2 Globulin 4.1 Albumin/Globulin Ratio 0.8 L Free T4 POC Glucose 182 H 03/14/21 11:11 WBC RBC Hgb Hct MCV MCH MCHC RDW Std Deviation RDW Coeff of Joey Plt Count MPV Immature Gran % (Auto) Neut % (Auto) Lymph % (Auto) [place] % (Auto) Eos % (Auto) Baso % (Auto) Absolute Neuts (auto) Absolute Lymphs (auto) Nucleated RBC % Sodium Potassium Chloride Carbon Dioxide Anion Gap BUN Creatinine Estim Creat Clear Calc Est GFR (MDRD) Af Amer Est GFR (MDRD) Non-Af BUN/Creatinine Ratio Glucose Calcium Total Bilirubin AST ALT Alkaline Phosphatase Total Protein Albumin Globulin Albumin/Globulin Ratio Free T4 POC Glucose 204 H Micro: Microbiology 03/12/21 18:50 Nasal Secretion SARS-CoV-2 Antigen (Rapid) - Final Radiography Diagnostic Testing: Radiology Impression Echocardiogram 03/12/21 22:47 Interpretation Summary The estimated ejection fraction is 60 %. No evidence for diastolic dysfunction. Mild (1+) mitral valve insufficiency. The study was technically difficult. Contrast injection was performed. Ordering Physician: Roberto Fernandez Referring Physician: KATHY SRINIVASA Performed By: Rolanda Caro VINCE Physical Exam Const alert, oriented x3 and no apparent distress Orientation / Consciousness: awake, oriented to person, oriented to place and oriented to time HEENT normocephalic and moist oral mucous membranes Eyes PERRL, EOMs intact bilaterally and conjunctivae normal Neck no lymphadenopathy Resp normal respiratory effort and clear to auscultation bilaterally Cardio regular rate, regular rhythm and no murmurs Peripheral Pulses: pulses 2+ throughout GI normal to inspection, nondistended, normoactive bowel sounds, non-tender and non-distended Extremity normal to inspection Skin no rashes or lesions noted Lesions: no lesions Rashes: no rashes Trauma: no lacerations or abrasions Neuro oriented x3 Sensorium / Orientation: awake and alert Psych affect normal Assessment & Plan Assessment/Plan (1) Elevated troponin: (2) Dyspnea on exertion: PLAN: 1. Acute heart failure with preserved ejection fraction-BNP 430. CTA negative for PE, trace bilateral pleural effusions. Strict I&O. Daily weight. Echocardiogram demonstrates an EF of 60%, mild mitral valve insufficiency. Oxygen stable on room air, not documented to be hypoxic. Further Lasix discontinued due to renal function. 2. Elevated troponin, abnormal stress test-cardiology consulted. Plan for heart cath pending further evaluation of renal function. Continue aspirin, statin, beta-ericka. 3. Hypertension, markedly elevated-HCTZ held due to acute kidney injury. Continue nifedipine, lisinopril. As needed hydralazine for systolic blood pressure greater than 160. Initiated on carvedilol. 4. Acute kidney injury vs CKD-initially improved with diuresis. Unknown baseline, will attempt to get prior lab records from PCP. DC further Lasix. Trend BMP. 5. Type 2 diabetes mellitus-oral regimen on hold. Accu-Cheks with sliding scale insulin. 6. Hyperlipidemia-continue statin. DVT prophylaxis- Lovenox sc This patient was seen by KIMBERLY Hernandez under the supervision of Dr. Gonzalez. Documented by User: Dr. Lynn Gonzalez MD 03/14/21 16:21 Objective Data Lab / Micro Data Result Diagrams: 03/14/21 06:30 03/14/21 06:30
[2021-03-14 17:31] LABS: Bedside Glucose 184 mg/dL (70-110)
[2021-03-14] MEDS: hydrALAZINE 25 MG Tablet PO (20:51)
[2021-03-14] MEDS: Atorvastatin Calcium 20 MG Tablet PO (20:52)
[2021-03-14 21:05] LABS: Bedside Glucose 154 mg/dL (70-110)
[2021-03-15] VITALS (13 sets, daily range): BP systolic 103–142; BP diastolic 65–89; PULSE 60–83; RESP 16–18; TEMP 36.5–37; O2SAT 95–97
[2021-03-15] MEDS: hydrALAZINE 25 MG Tablet PO ×2 (06:34→21:30)
[2021-03-15] MEDS: Enoxaparin 30 MG/0.3 ML Syringe SC (06:34)
[2021-03-15] MEDS: 0.9% Saline Lock 10 ML Syringe IV (06:35)
[2021-03-15 06:45] LABS: Bedside Glucose 152 mg/dL (70-110)
[2021-03-15 08:04] LABS: Absolute Lymphocyte Count 1.37 X10^3/uL (0.83-4.51); Absolute Neutrophil Count 4.7 X10^3/uL (2.0-7.7); Basophil# 0.07 X10^3/uL; Eosinophil# 0.44 X10^3/uL; Eosinophils% 6.1 % (0-5); Hematocrit 33.1 % (40-54); Hemoglobin 11.3 g/dL (13.0-16.5); Lymphocyte # 1.37 X10^3/ul (0.83-4.51); Mean Corp Hgb Conc 34.1 g/dL (32-36); Mean Corpuscular Hgb 29.4 pg (27.0-32.0); Mean Corpuscular Volume 86.2 fL (80-94); Mean Platelet Vol. 10.3 fl (6.2-12.0); Monocyte# 0.66 X10^3/uL; Monocyte% 9.1 % (0-10); NRBC Flagged by Analyzer 0 % (0-5); Neutrophil # 4.67 X10^3/uL (2.7-7.7); Neutrophil % 64.7 % (47-70); Platelet Count 351 K/mm3 (150-450); RBC Distribution Width CV 11.7 % (11.6-14.6); RBC Distribution Width SD 36.1 fl (35.1-43.9); Red Blood Count 3.84 M/mm3 (4.6-6.2); White Blood Count 7.2 K/mm3 (4.4-11.0)
[2021-03-15 08:17] LABS: ALB/GLOB Ratio 0.8 RATIO (0.9-2.4); AST(SGOT) 16 U/L (15-37); Alanine Aminotransfer ALT/SGPT 21 U/L (16-61); Albumin, Serum 3.2 g/dL (3.2-5.0); Alkaline Phosphatase 84 U/L (45-117); Anion Gap 7 (5-15); BUN 39 mg/dL (7-18); BUN/Creat Ratio 16.8 RATIO (10-20); Calcium,Total 8.9 mg/dL (8.5-10.1); Chloride 108 mmol/L (98-107); Creatinine, Serum 2.32 mg/dL (0.70-1.30); EST Glomerular Filtration Rate 30 mL/min (>60); Est Glom Filt Rate - Afr Amer 36 mL/min (>60); Estimated Creatinine Clearance 27.84 ml/min; Glucose 159 mg/dL (74-106); Potassium 3.8 mmol/L (3.5-5.1); Protein, Total 7.2 g/dL (6.4-8.2); Sodium Level 138 mmol/L (136-145)
[2021-03-15] MEDS: Aspirin E.C. 81 MG Tablet PO (08:33)
[2021-03-15] MEDS: NIFEdipine 60 MG Tablet PO (08:33)
[2021-03-15] MEDS: Carvedilol 6.25 MG Tablet PO ×2 (08:33→21:30)
[2021-03-15] MEDS: Potassium Chloride Oral Tablet 20 MEQ 40 MEQ PO (08:33)
--- NOTE | 2021-03-15 09:26 | PN.CARD_ITS ---
Subjective Subjective: Patient seen and evaluated. Appears to be doing well. No complaints at this particular time. Objective Data Vital Signs: Vital Signs Temp Pulse Resp BP Pulse Ox 97.8 F 67 16 126/68 H 95 03/15/21 06:31 03/15/21 06:50 03/15/21 06:31 03/15/21 06:31 03/15/21 07:34 Oxygen Flow Rate (L/min) 2 Oxygen Delivery Method Room Air Weight: 176 lb 12.972 oz Body Mass Index (BMI) 27.6 Intake & Output: Intake and Output for Last 24 Hours 03/13/21 03/14/21 03/15/21 23:59 23:59 23:59 Intake Total 555 / 555 650 / 650 50 / 50 Output Total 3150 / 3150 750 / 750 Balance -2595 / -2595 -100 / -100 50 / 50 Lab / Micro Data Result Diagrams: 03/15/21 07:34 03/15/21 07:34 Labs: Laboratory Results - last 24 hr 03/14/21 03/14/21 03/14/21 11:11 17:24 20:46 WBC RBC Hgb Hct MCV MCH MCHC RDW Std Deviation RDW Coeff of Joey Plt Count MPV Immature Gran % (Auto) Neut % (Auto) Lymph % (Auto) [place] % (Auto) Eos % (Auto) Baso % (Auto) Absolute Neuts (auto) Absolute Lymphs (auto) Nucleated RBC % Sodium Potassium Chloride Carbon Dioxide Anion Gap BUN Creatinine Estim Creat Clear Calc Est GFR (MDRD) Af Amer Est GFR (MDRD) Non-Af BUN/Creatinine Ratio Glucose Calcium Total Bilirubin AST ALT Alkaline Phosphatase Total Protein Albumin Globulin Albumin/Globulin Ratio POC Glucose 204 H 184 H 154 H 03/15/21 03/15/21 03/15/21 06:34 07:34 07:34 WBC 7.2 RBC 3.84 L Hgb 11.3 L Hct 33.1 L MCV 86.2 MCH 29.4 MCHC 34.1 RDW Std Deviation 36.1 RDW Coeff of Joey 11.7 Plt Count 351 MPV 10.3 Immature Gran % (Auto) 0.100 Neut % (Auto) 64.7 Lymph % (Auto) 19.0 [place] % (Auto) 9.1 Eos % (Auto) 6.1 H Baso % (Auto) 1.0 Absolute Neuts (auto) 4.7 Absolute Lymphs (auto) 1.37 Nucleated RBC % 0 Sodium 138 Potassium 3.8 Chloride 108 H Carbon Dioxide 23.0 Anion Gap 7 BUN 39 H Creatinine 2.32 H Estim Creat Clear Calc 27.84 Est GFR (MDRD) Af Amer 36 L Est GFR (MDRD) Non-Af 30 L BUN/Creatinine Ratio 16.8 Glucose 159 H Calcium 8.9 Total Bilirubin 0.40 AST 16 ALT 21 Alkaline Phosphatase 84 Total Protein 7.2 Albumin 3.2 Globulin 4.0 Albumin/Globulin Ratio 0.8 L POC Glucose 152 H Micro: Microbiology 03/12/21 18:50 Nasal Secretion SARS-CoV-2 Antigen (Rapid) - Final Cardiology Labs/Tests 03/15/21 07:34: WBC 7.2, RBC 3.84 L, Hgb 11.3 L, Hct 33.1 L, MCV 86.2, MCH 29.4, MCHC 34.1, Plt Count 351, MPV 10.3, Immature Gran % (Auto) 0.100, Neut % (Auto) 64.7, Lymph % (Auto) 19.0, [place] % (Auto) 9.1, Eos % (Auto) 6.1 H, Baso % (Auto) 1.0, Absolute Neuts (auto) 4.7, Nucleated RBC % 0 03/15/21 07:34: Sodium 138, Potassium 3.8, Chloride 108 H, Carbon Dioxide 23.0, Anion Gap 7, BUN 39 H, Creatinine 2.32 H, Est GFR (MDRD) Af Amer 36 L, Est GFR (MDRD) Non-Af 30 L, BUN/Creatinine Ratio 16.8, Glucose 159 H, Calcium 8.9, Total Bilirubin 0.40 Rhythm: EKG: ECHO: Stress Test: Cardiac Cath: PCI: CT Surgery: Holter monitor: EPS: PPM: CXR: Chest CT Scan: Radiography Diagnostic Testing: Radiology Impression Echocardiogram 03/12/21 22:47 Interpretation Summary The estimated ejection fraction is 60 %. No evidence for diastolic dysfunction. Mild (1+) mitral valve insufficiency. The study was technically difficult. Contrast injection was performed. Ordering Physician: Roberto Fernandez Referring Physician: KATHY BERNABE Performed By: Rolanda Caro RDCS Physical Exam Const oriented x3 and healthy appearing Orientation / Consciousness: awake HEENT normocephalic Eyes PERRL and conjunctivae normal Neck supple, no JVD and no carotid bruits Chest inspection of chest normal Resp normal respiratory effort and clear to auscultation bilaterally Cardio Palpation: normal PMI Rate: regular rate Rhythm: regular rhythm Heart Sounds: S1 normal and S2 normal Peripheral Pulses: pulses 2+ throughout GI normal to inspection, nondistended, normoactive bowel sounds Extremity normal to inspection and no clubbing, cyanosis or edema Psych mental status grossly normal Assessment & Plan Assessment/Plan (1) Elevated troponin: PLAN: He is have evidence of an elevated troponin plan will be to him on carvedilol, aspirin statin seed with a left heart catheterization on Wednesday. The risks benefits alternatives have been explained to him he understands and agrees to proceed. I would suggest intravenous fluid for rehydration. (2) Chest pain: QUALIFIERS: Chest pain type: unspecified Qualified Code(s): R07.9 - Chest pain, unspecified PLAN: He has not had any further chest discomfort. His blood pressure has been stable. I would not recommend we make any other changes.
[2021-03-15] MEDS: 0.9% Normal Saline 1,000 ML 60 ML IV (09:48)
--- NOTE | 2021-03-15 09:51 | PCM.PN.HOSP ---
Documented by User: Sherice Rausch NP, GENERAL MEDICAL PRACTITIONER-C 03/15/21 09:56 Subjective Subjective: Patient seen and examined. Discussed plan of care, plan for heart cath on Wednesday. Patient denies shortness of breath, chest pain. Patient denies known history of chronic kidney disease however states he has not had his labs checked frequently in the past. Records requested from [place] for prior labs. Objective Data Objective Data Vital Signs: Vital Signs Temp Pulse Resp BP Pulse Ox 97.8 F 67 16 126/68 H 95 03/15/21 06:31 03/15/21 06:50 03/15/21 06:31 03/15/21 06:31 03/15/21 07:34 Oxygen Flow Rate (L/min) 2 Oxygen Delivery Method Room Air Weight: 176 lb 12.972 oz Body Mass Index (BMI) 27.6 Intake & Output: Intake and Output for Last 24 Hours 03/13/21 03/14/21 03/15/21 23:59 23:59 23:59 Intake Total 555 / 555 650 / 650 50 / 50 Output Total 3150 / 3150 750 / 750 Balance -2595 / -2595 -100 / -100 50 / 50 Lab / Micro Data Result Diagrams: 03/15/21 07:34 03/15/21 07:34 Labs: Laboratory Results - last 24 hr 03/14/21 03/14/21 03/14/21 11:11 17:24 20:46 WBC RBC Hgb Hct MCV MCH MCHC RDW Std Deviation RDW Coeff of Joey Plt Count MPV Immature Gran % (Auto) Neut % (Auto) Lymph % (Auto) [place] % (Auto) Eos % (Auto) Baso % (Auto) Absolute Neuts (auto) Absolute Lymphs (auto) Nucleated RBC % Sodium Potassium Chloride Carbon Dioxide Anion Gap BUN Creatinine Estim Creat Clear Calc Est GFR (MDRD) Af Amer Est GFR (MDRD) Non-Af BUN/Creatinine Ratio Glucose Calcium Total Bilirubin AST ALT Alkaline Phosphatase Total Protein Albumin Globulin Albumin/Globulin Ratio POC Glucose 204 H 184 H 154 H 03/15/21 03/15/21 03/15/21 06:34 07:34 07:34 WBC 7.2 RBC 3.84 L Hgb 11.3 L Hct 33.1 L MCV 86.2 MCH 29.4 MCHC 34.1 RDW Std Deviation 36.1 RDW Coeff of Joey 11.7 Plt Count 351 MPV 10.3 Immature Gran % (Auto) 0.100 Neut % (Auto) 64.7 Lymph % (Auto) 19.0 [place] % (Auto) 9.1 Eos % (Auto) 6.1 H Baso % (Auto) 1.0 Absolute Neuts (auto) 4.7 Absolute Lymphs (auto) 1.37 Nucleated RBC % 0 Sodium 138 Potassium 3.8 Chloride 108 H Carbon Dioxide 23.0 Anion Gap 7 BUN 39 H Creatinine 2.32 H Estim Creat Clear Calc 27.84 Est GFR (MDRD) Af Amer 36 L Est GFR (MDRD) Non-Af 30 L BUN/Creatinine Ratio 16.8 Glucose 159 H Calcium 8.9 Total Bilirubin 0.40 AST 16 ALT 21 Alkaline Phosphatase 84 Total Protein 7.2 Albumin 3.2 Globulin 4.0 Albumin/Globulin Ratio 0.8 L POC Glucose 152 H Micro: Microbiology 03/12/21 18:50 Nasal Secretion SARS-CoV-2 Antigen (Rapid) - Final Radiography Diagnostic Testing: Radiology Impression Echocardiogram 03/12/21 22:47 Interpretation Summary The estimated ejection fraction is 60 %. No evidence for diastolic dysfunction. Mild (1+) mitral valve insufficiency. The study was technically difficult. Contrast injection was performed. Ordering Physician: Roberto Fernandez Referring Physician: KATHY BERNABE Performed By: Rolanda Caro RDCS Physical Exam Const alert, oriented x3 and no apparent distress Orientation / Consciousness: awake, oriented to person, oriented to place and oriented to time HEENT normocephalic and moist oral mucous membranes Eyes PERRL, EOMs intact bilaterally and conjunctivae normal Neck no lymphadenopathy Resp normal respiratory effort and clear to auscultation bilaterally Cardio regular rate, regular rhythm and no murmurs Peripheral Pulses: pulses 2+ throughout GI normal to inspection, nondistended, normoactive bowel sounds, non-tender and non-distended Extremity normal to inspection Skin no rashes or lesions noted Lesions: no lesions Rashes: no rashes Trauma: no lacerations or abrasions Neuro oriented x3 Sensorium / Orientation: awake and alert Psych affect normal Assessment & Plan Assessment/Plan (1) Elevated troponin: (2) Dyspnea on exertion: (3) Chest pain: QUALIFIERS: Chest pain type: unspecified Qualified Code(s): R07.9 - Chest pain, unspecified PLAN: 1. Acute heart failure with preserved ejection fraction-BNP 430. CTA negative for PE, trace bilateral pleural effusions. Strict I&O. Daily weight. Echocardiogram demonstrates an EF of 60%, mild mitral valve insufficiency. Oxygen stable on room air, not documented to be hypoxic. Further Lasix discontinued due to renal function. 2. Elevated troponin, abnormal stress test-cardiology consulted. Plan for heart cath on Wednesday. Continue aspirin, statin, beta-ericka. 3. Hypertension, markedly elevated-HCTZ held due to acute kidney injury. Continue nifedipine. As needed hydralazine for systolic blood pressure greater than 160. Initiated on carvedilol and hydralazine 25 mg 3 times daily. Home lisinopril/HCTZ held due to renal function. 4. Acute kidney injury vs CKD-initially improved with diuresis. Unknown baseline, will attempt to get prior lab records from PCP. DC further Lasix. Trend BMP. 5. Type 2 diabetes mellitus-oral regimen on hold. Accu-Cheks with sliding scale insulin. 6. Hyperlipidemia-continue statin. DVT prophylaxis- Lovenox sc This patient was seen by Sherice Rausch NP-C under the supervision of Dr. Gonzalez. Documented by User: Dr. Lynn Gonzalez MD 03/15/21 14:24 Objective Data Lab / Micro Data Result Diagrams: 03/15/21 07:34 03/15/21 07:34
[2021-03-15] MEDS: Insulin Lispro 100 UNIT/ML INSULN.PEN SC (11:37)
[2021-03-15 11:41] LABS: Bedside Glucose 247 mg/dL (70-110)
[2021-03-15 17:46] LABS: Bedside Glucose 167 mg/dL (70-110)
[2021-03-15] MEDS: Atorvastatin Calcium 20 MG Tablet PO (21:30)
[2021-03-15 21:41] LABS: Bedside Glucose 123 mg/dL (70-110)
[2021-03-16] VITALS (13 sets, daily range): BP systolic 118–150; BP diastolic 45–73; PULSE 38–95; RESP 16–18; TEMP 36.3–36.9; O2SAT 93–97
[2021-03-16] MEDS: 0.9% Normal Saline 1,000 ML 60 ML IV ×2 (02:11→18:15)
[2021-03-16] MEDS: Enoxaparin 30 MG/0.3 ML Syringe SC (06:38)
[2021-03-16] MEDS: hydrALAZINE 25 MG Tablet PO ×3 (06:38→21:02)
[2021-03-16 06:45] LABS: Bedside Glucose 140 mg/dL (70-110)
[2021-03-16 06:53] LABS: Absolute Lymphocyte Count 1.48 X10^3/uL (0.83-4.51); Absolute Neutrophil Count 4.3 X10^3/uL (2.0-7.7); Basophil# 0.07 X10^3/uL; Eosinophil# 0.35 X10^3/uL; Eosinophils% 5.1 % (0-5); Hemoglobin 10.8 g/dL (13.0-16.5); Lymphocyte # 1.48 X10^3/ul (0.83-4.51); Lymphocyte % 21.7 % (19-41); Mean Corp Hgb Conc 33.8 g/dL (32-36); Mean Corpuscular Hgb 29.5 pg (27.0-32.0); Mean Corpuscular Volume 87.4 fL (80-94); Mean Platelet Vol. 10.5 fl (6.2-12.0); Monocyte# 0.59 X10^3/uL; Monocyte% 8.7 % (0-10); NRBC Flagged by Analyzer 0 % (0-5); Neutrophil % 63.2 % (47-70); Platelet Count 348 K/mm3 (150-450); RBC Distribution Width CV 11.8 % (11.6-14.6); RBC Distribution Width SD 37.7 fl (35.1-43.9); Red Blood Count 3.66 M/mm3 (4.6-6.2); White Blood Count 6.8 K/mm3 (4.4-11.0)
[2021-03-16 07:16] LABS: ALB/GLOB Ratio 0.8 RATIO (0.9-2.4); AST(SGOT) 12 U/L (15-37); Alanine Aminotransfer ALT/SGPT 19 U/L (16-61); Alkaline Phosphatase 82 U/L (45-117); Anion Gap 13 (5-15); BUN 41 mg/dL (7-18); BUN/Creat Ratio 17.9 RATIO (10-20); Calcium,Total 8.3 mg/dL (8.5-10.1); Chloride 107 mmol/L (98-107); Creatinine, Serum 2.29 mg/dL (0.70-1.30); EST Glomerular Filtration Rate 30 mL/min (>60); Est Glom Filt Rate - Afr Amer 36 mL/min (>60); Estimated Creatinine Clearance 28.21 ml/min; Globulin 3.7 g/dL (2.2-4.2); Glucose 125 mg/dL (74-106); Protein, Total 6.7 g/dL (6.4-8.2); Sodium Level 141 mmol/L (136-145)
[2021-03-16] MEDS: Aspirin E.C. 81 MG Tablet PO (08:05)
[2021-03-16] MEDS: Potassium Chloride Oral Tablet 20 MEQ 40 MEQ PO (08:05)
[2021-03-16] MEDS: Carvedilol 6.25 MG Tablet PO ×2 (08:05→21:02)
[2021-03-16] MEDS: NIFEdipine 60 MG Tablet PO (08:06)
--- NOTE | 2021-03-16 08:06 | PCM.PN.CARD ---
Subjective Subjective: Seen and evaluated. Objective Data Vital Signs: Vital Signs Temp Pulse Resp BP Pulse Ox 97.4 F L 73 18 137/71 H 93 03/16/21 03:20 03/16/21 07:16 03/16/21 03:20 03/16/21 03:20 03/16/21 07:00 Oxygen Flow Rate (L/min) 2 Oxygen Delivery Method Room Air Weight: 177 lb 4.026 oz Body Mass Index (BMI) 27.6 Intake & Output: Intake and Output for Last 24 Hours 03/14/21 03/15/21 03/16/21 23:59 23:59 23:59 Intake Total 650 / 650 890 / 890 1103 / 1103 Output Total 750 / 750 600 / 600 Balance -100 / -100 290 / 290 1103 / 1103 Lab / Micro Data Result Diagrams: 03/16/21 05:15 03/16/21 05:15 Labs: Laboratory Results - last 24 hr 03/15/21 03/15/21 03/15/21 07:34 11:36 17:17 WBC RBC Hgb Hct MCV MCH MCHC RDW Std Deviation RDW Coeff of Joey Plt Count MPV Immature Gran % (Auto) Neut % (Auto) Lymph % (Auto) [place] % (Auto) Eos % (Auto) Baso % (Auto) Absolute Neuts (auto) Absolute Lymphs (auto) Nucleated RBC % Sodium 138 Potassium 3.8 Chloride 108 H Carbon Dioxide 23.0 Anion Gap 7 BUN 39 H Creatinine 2.32 H Estim Creat Clear Calc 27.84 Est GFR (MDRD) Af Amer 36 L Est GFR (MDRD) Non-Af 30 L BUN/Creatinine Ratio 16.8 Glucose 159 H Calcium 8.9 Total Bilirubin 0.40 AST 16 ALT 21 Alkaline Phosphatase 84 Total Protein 7.2 Albumin 3.2 Globulin 4.0 Albumin/Globulin Ratio 0.8 L POC Glucose 247 H 167 H 03/15/21 03/16/21 03/16/21 21:29 05:15 05:15 WBC 6.8 RBC 3.66 L Hgb 10.8 L Hct 32.0 L MCV 87.4 MCH 29.5 MCHC 33.8 RDW Std Deviation 37.7 RDW Coeff of Joey 11.8 Plt Count 348 MPV 10.5 Immature Gran % (Auto) 0.300 Neut % (Auto) 63.2 Lymph % (Auto) 21.7 [place] % (Auto) 8.7 Eos % (Auto) 5.1 H Baso % (Auto) 1.0 Absolute Neuts (auto) 4.3 Absolute Lymphs (auto) 1.48 Nucleated RBC % 0 Sodium 141 Potassium 4.0 Chloride 107 Carbon Dioxide 21.0 Anion Gap 13 BUN 41 H Creatinine 2.29 H Estim Creat Clear Calc 28.21 Est GFR (MDRD) Af Amer 36 L Est GFR (MDRD) Non-Af 30 L BUN/Creatinine Ratio 17.9 Glucose 125 H Calcium 8.3 L Total Bilirubin 0.30 AST 12 L ALT 19 Alkaline Phosphatase 82 Total Protein 6.7 Albumin 3.0 L Globulin 3.7 Albumin/Globulin Ratio 0.8 L POC Glucose 123 H 03/16/21 06:37 WBC RBC Hgb Hct MCV MCH MCHC RDW Std Deviation RDW Coeff of Joey Plt Count MPV Immature Gran % (Auto) Neut % (Auto) Lymph % (Auto) [place] % (Auto) Eos % (Auto) Baso % (Auto) Absolute Neuts (auto) Absolute Lymphs (auto) Nucleated RBC % Sodium Potassium Chloride Carbon Dioxide Anion Gap BUN Creatinine Estim Creat Clear Calc Est GFR (MDRD) Af Amer Est GFR (MDRD) Non-Af BUN/Creatinine Ratio Glucose Calcium Total Bilirubin AST ALT Alkaline Phosphatase Total Protein Albumin Globulin Albumin/Globulin Ratio POC Glucose 140 H Micro: Microbiology 03/12/21 18:50 Nasal Secretion SARS-CoV-2 Antigen (Rapid) - Final Cardiology Labs/Tests 03/15/21 07:34: Sodium 138, Potassium 3.8, Chloride 108 H, Carbon Dioxide 23.0, Anion Gap 7, BUN 39 H, Creatinine 2.32 H, Est GFR (MDRD) Af Amer 36 L, Est GFR (MDRD) Non-Af 30 L, BUN/Creatinine Ratio 16.8, Glucose 159 H, Calcium 8.9, Total Bilirubin 0.40 03/16/21 05:15: WBC 6.8, RBC 3.66 L, Hgb 10.8 L, Hct 32.0 L, MCV 87.4, MCH 29.5, MCHC 33.8, Plt Count 348, MPV 10.5, Immature Gran % (Auto) 0.300, Neut % (Auto) 63.2, Lymph % (Auto) 21.7, [place] % (Auto) 8.7, Eos % (Auto) 5.1 H, Baso % (Auto) 1.0, Absolute Neuts (auto) 4.3, Nucleated RBC % 0 03/16/21 05:15: Sodium 141, Potassium 4.0, Chloride 107, Carbon Dioxide 21.0, Anion Gap 13, BUN 41 H, Creatinine 2.29 H, Est GFR (MDRD) Af Amer 36 L, Est GFR (MDRD) Non-Af 30 L, BUN/Creatinine Ratio 17.9, Glucose 125 H, Calcium 8.3 L, Total Bilirubin 0.30 Rhythm: EKG: ECHO: Stress Test: Cardiac Cath: PCI: CT Surgery: Holter monitor: EPS: PPM: CXR: Chest CT Scan: Physical Exam Const oriented x3 and healthy appearing Orientation / Consciousness: awake HEENT normocephalic Eyes PERRL and conjunctivae normal Neck supple, no JVD and no carotid bruits Chest inspection of chest normal Resp normal respiratory effort and clear to auscultation bilaterally Cardio Palpation: normal PMI Rate: regular rate Rhythm: regular rhythm Heart Sounds: S1 normal and S2 normal Peripheral Pulses: pulses 2+ throughout GI normal to inspection, nondistended, normoactive bowel sounds Extremity normal to inspection and no clubbing, cyanosis or edema Psych mental status grossly normal Assessment & Plan Assessment/Plan (1) Elevated troponin: PLAN: He is have evidence of an elevated troponin plan will be to him on carvedilol, aspirin statin seed with a left heart catheterization on Wednesday. The risks benefits alternatives have been explained to him he understands and agrees to proceed. I would suggest intravenous fluid for rehydration. (2) Chest pain: QUALIFIERS: Chest pain type: unspecified Qualified Code(s): R07.9 - Chest pain, unspecified PLAN: He has not had any further chest discomfort. His blood pressure has been stable. I would not recommend we make any other changes.
--- NOTE | 2021-03-16 10:23 | PN.HOSP_ITS ---
Documented by User: Sherice Rausch NP, GROUP SEGMENT CONSULTANT-C 03/16/21 10:36 Subjective Subjective: Patient seen and examined. No acute events overnight. Denies chest pain, shortness of breath. Heart cath in a.m. Objective Data Objective Data Vital Signs: Vital Signs Temp Pulse Resp BP Pulse Ox 98.0 F 62 16 118/45 L 96 03/16/21 09:20 03/16/21 09:20 03/16/21 09:20 03/16/21 09:20 03/16/21 09:20 Oxygen Flow Rate (L/min) 2 Oxygen Delivery Method Room Air Weight: 177 lb 4.026 oz Body Mass Index (BMI) 27.6 Intake & Output: Intake and Output for Last 24 Hours 03/14/21 03/15/21 03/16/21 23:59 23:59 23:59 Intake Total 650 / 650 890 / 890 1103 / 1103 Output Total 750 / 750 600 / 600 Balance -100 / -100 290 / 290 1103 / 1103 Lab / Micro Data Result Diagrams: 03/16/21 05:15 03/16/21 05:15 Labs: Laboratory Results - last 24 hr 03/15/21 03/15/21 03/15/21 11:36 17:17 21:29 WBC RBC Hgb Hct MCV MCH MCHC RDW Std Deviation RDW Coeff of Joey Plt Count MPV Immature Gran % (Auto) Neut % (Auto) Lymph % (Auto) [place] % (Auto) Eos % (Auto) Baso % (Auto) Absolute Neuts (auto) Absolute Lymphs (auto) Nucleated RBC % Sodium Potassium Chloride Carbon Dioxide Anion Gap BUN Creatinine Estim Creat Clear Calc Est GFR (MDRD) Af Amer Est GFR (MDRD) Non-Af BUN/Creatinine Ratio Glucose Calcium Total Bilirubin AST ALT Alkaline Phosphatase Total Protein Albumin Globulin Albumin/Globulin Ratio POC Glucose 247 H 167 H 123 H 03/16/21 03/16/21 03/16/21 05:15 05:15 06:37 WBC 6.8 RBC 3.66 L Hgb 10.8 L Hct 32.0 L MCV 87.4 MCH 29.5 MCHC 33.8 RDW Std Deviation 37.7 RDW Coeff of Joey 11.8 Plt Count 348 MPV 10.5 Immature Gran % (Auto) 0.300 Neut % (Auto) 63.2 Lymph % (Auto) 21.7 [place] % (Auto) 8.7 Eos % (Auto) 5.1 H Baso % (Auto) 1.0 Absolute Neuts (auto) 4.3 Absolute Lymphs (auto) 1.48 Nucleated RBC % 0 Sodium 141 Potassium 4.0 Chloride 107 Carbon Dioxide 21.0 Anion Gap 13 BUN 41 H Creatinine 2.29 H Estim Creat Clear Calc 28.21 Est GFR (MDRD) Af Amer 36 L Est GFR (MDRD) Non-Af 30 L BUN/Creatinine Ratio 17.9 Glucose 125 H Calcium 8.3 L Total Bilirubin 0.30 AST 12 L ALT 19 Alkaline Phosphatase 82 Total Protein 6.7 Albumin 3.0 L Globulin 3.7 Albumin/Globulin Ratio 0.8 L POC Glucose 140 H Micro: Microbiology 03/12/21 18:50 Nasal Secretion SARS-CoV-2 Antigen (Rapid) - Final Physical Exam Const alert, oriented x3 and no apparent distress Orientation / Consciousness: awake, oriented to person, oriented to place and oriented to time HEENT normocephalic and moist oral mucous membranes Eyes PERRL, EOMs intact bilaterally and conjunctivae normal Neck no lymphadenopathy Resp normal respiratory effort and clear to auscultation bilaterally Cardio regular rate, regular rhythm and no murmurs Peripheral Pulses: pulses 2+ throughout GI normal to inspection, nondistended, normoactive bowel sounds, non-tender and non-distended Extremity normal to inspection Skin no rashes or lesions noted Lesions: no lesions Rashes: no rashes Trauma: no lacerations or abrasions Neuro oriented x3 Sensorium / Orientation: awake and alert Psych affect normal Assessment & Plan Assessment/Plan (1) Elevated troponin: PLAN: 1. Acute heart failure with preserved ejection fraction-BNP 430. CTA negative for PE, trace bilateral pleural effusions. Strict I&O. Daily weight. Echocardiogram demonstrates an EF of 60%, mild mitral valve insufficiency. Oxygen stable on room air, not documented to be hypoxic. Further Lasix discontinued due to renal function. Stable. 2. Elevated troponin, abnormal stress test-cardiology consulted. Plan for heart cath on Wednesday03/17/21. Continue aspirin, statin, beta-ericka. 3. Hypertension-HCTZ/Lisinopril held due to renal function. Continue nife dipine. Initiated on carvedilol 6.25 mg twice daily and hydralazine 25 mg 3 times daily. 4. Acute kidney injury vs CKD-Unknown baseline, records requested from [facility]. Suspect CKD stage IIIb as labs have remained stable. Gentle hydration prior to cath. 5. Type 2 diabetes mellitus-oral regimen on hold. Accu-Cheks with sliding scale insulin. 6. Hyperlipidemia-continue statin. DVT prophylaxis- Lovenox sc This patient was seen by KIMBERLY Hernandez under the supervision of Dr. Gonzalez. Documented by User: Dr. Lynn Gonzalez MD 03/16/21 12:36 Objective Data Lab / Micro Data Result Diagrams: 03/16/21 05:15 03/16/21 05:15
[2021-03-16] MEDS: Insulin Lispro 100 UNIT/ML INSULN.PEN SC ×2 (11:39→21:03)
[2021-03-16 11:46] LABS: Bedside Glucose 283 mg/dL (70-110)
[2021-03-16 17:15] LABS: Bedside Glucose 134 mg/dL (70-110)
[2021-03-16] MEDS: Atorvastatin Calcium 20 MG Tablet PO (21:03)
[2021-03-16 21:11] LABS: Bedside Glucose 159 mg/dL (70-110)
[2021-03-17] VITALS (12 sets, daily range): BP systolic 129–151; BP diastolic 7–77; PULSE 59–76; RESP 16–20; TEMP 35.9–36.4; O2SAT 93–99
--- NOTE | 2021-03-17 05:55 | EKG12_ITS ---
Test Reason : SOB Blood Pressure : / mmHG Vent. Rate : 098 BPM Atrial Rate : 098 BPM P-R Int : 158 ms QRS Dur : 086 ms QT Int : 352 ms P-R-T Axes : 037 029 150 degrees QTc Int : 449 ms Normal sinus rhythm Anteroseptal infarct , age undetermined ST & T wave abnormality, consider lateral ischemia Abnormal ECG Confirmed by HENRIETTA PENA, CHANTE ([id number]), greeting card editor ROBERT LYON ([id number]) on 03/19/2021 9:22:15 AM Referred By: JUAN Confirmed By:CHANTE SHRESTHA MD
[2021-03-17] MEDS: Aspirin E.C. 81 MG Tablet PO (05:56)
[2021-03-17] MEDS: NIFEdipine 60 MG Tablet PO (05:56)
[2021-03-17] MEDS: hydrALAZINE 25 MG Tablet PO (05:56)
[2021-03-17] MEDS: Carvedilol 6.25 MG Tablet PO (05:56)
[2021-03-17 06:50] LABS: Bedside Glucose 141 mg/dL (70-110)
[2021-03-17 07:05] LABS: Absolute Lymphocyte Count 1.31 X10^3/uL (0.83-4.51); Absolute Neutrophil Count 4.3 X10^3/uL (2.0-7.7); Basophil# 0.07 X10^3/uL; Basophil% 1.1 % (0-1); Eosinophil# 0.34 X10^3/uL; Eosinophils% 5.2 % (0-5); Hemoglobin 10.8 g/dL (13.0-16.5); Lymphocyte # 1.31 X10^3/ul (0.83-4.51); Lymphocyte % 19.8 % (19-41); Mean Corp Hgb Conc 33.8 g/dL (32-36); Mean Corpuscular Hgb 29.4 pg (27.0-32.0); Mean Corpuscular Volume 87.2 fL (80-94); Mean Platelet Vol. 10.5 fl (6.2-12.0); Monocyte# 0.56 X10^3/uL; Monocyte% 8.5 % (0-10); NRBC Flagged by Analyzer 0 % (0-5); Neutrophil # 4.28 X10^3/uL (2.7-7.7); Neutrophil % 64.8 % (47-70); Platelet Count 330 K/mm3 (150-450); RBC Distribution Width CV 11.9 % (11.6-14.6); RBC Distribution Width SD 38.3 fl (35.1-43.9); Red Blood Count 3.67 M/mm3 (4.6-6.2); White Blood Count 6.6 K/mm3 (4.4-11.0)
[2021-03-17 07:30] LABS: Anion Gap 10 (5-15); BUN 37 mg/dL (7-18); BUN/Creat Ratio 18.4 RATIO (10-20); Calcium,Total 8.5 mg/dL (8.5-10.1); Chloride 110 mmol/L (98-107); Creatinine, Serum 2.01 mg/dL (0.70-1.30); EST Glomerular Filtration Rate 35 mL/min (>60); Est Glom Filt Rate - Afr Amer 42 mL/min (>60); Estimated Creatinine Clearance 32.14 ml/min; Glucose 133 mg/dL (74-106); Sodium Level 141 mmol/L (136-145)
--- NOTE | 2021-03-17 08:07 | PCM.PN.CARD ---
Subjective Subjective: Patient seen and evaluated. Appears to be doing well. Underwent cardiac catheterization today. Objective Data Vital Signs: Vital Signs Temp Pulse Resp BP Pulse Ox 97.6 F L 66 16 150/69 H 93 03/17/21 05:50 03/17/21 07:00 03/17/21 05:50 03/17/21 05:50 03/17/21 05:50 Oxygen Flow Rate (L/min) 2 Oxygen Delivery Method Room Air Weight: 177 lb 4.026 oz Body Mass Index (BMI) 27.6 Intake & Output: Intake and Output for Last 24 Hours 03/15/21 03/16/21 03/17/21 23:59 23:59 23:59 Intake Total 890 / 890 2787 / 2907 120 / 120 Output Total 600 / 600 725 / 1075 850 / 850 Balance 290 / 290 2062 / 1832 -730 / -730 Lab / Micro Data Result Diagrams: 03/17/21 06:30 03/17/21 06:30 Labs: Laboratory Results - last 24 hr 03/16/21 03/16/21 03/16/21 11:38 17:09 21:01 WBC RBC Hgb Hct MCV MCH MCHC RDW Std Deviation RDW Coeff of Joey Plt Count MPV Immature Gran % (Auto) Neut % (Auto) Lymph % (Auto) [place] % (Auto) Eos % (Auto) Baso % (Auto) Absolute Neuts (auto) Absolute Lymphs (auto) Nucleated RBC % Sodium Potassium Chloride Carbon Dioxide Anion Gap BUN Creatinine Estim Creat Clear Calc Est GFR (MDRD) Af Amer Est GFR (MDRD) Non-Af BUN/Creatinine Ratio Glucose Calcium POC Glucose 283 H 134 H 159 H 03/17/21 03/17/21 03/17/21 06:30 06:30 06:48 WBC 6.6 RBC 3.67 L Hgb 10.8 L Hct 32.0 L MCV 87.2 MCH 29.4 MCHC 33.8 RDW Std Deviation 38.3 RDW Coeff of Joey 11.9 Plt Count 330 MPV 10.5 Immature Gran % (Auto) 0.600 Neut % (Auto) 64.8 Lymph % (Auto) 19.8 [place] % (Auto) 8.5 Eos % (Auto) 5.2 H Baso % (Auto) 1.1 H Absolute Neuts (auto) 4.3 Absolute Lymphs (auto) 1.31 Nucleated RBC % 0 Sodium 141 Potassium 4.0 Chloride 110 H Carbon Dioxide 21.0 Anion Gap 10 BUN 37 H Creatinine 2.01 H Estim Creat Clear Calc 32.14 Est GFR (MDRD) Af Amer 42 L Est GFR (MDRD) Non-Af 35 L BUN/Creatinine Ratio 18.4 Glucose 133 H Calcium 8.5 POC Glucose 141 H Micro: Microbiology 03/12/21 18:50 Nasal Secretion SARS-CoV-2 Antigen (Rapid) - Final Cardiology Labs/Tests 03/17/21 06:30: WBC 6.6, RBC 3.67 L, Hgb 10.8 L, Hct 32.0 L, MCV 87.2, MCH 29.4, MCHC 33.8, Plt Count 330, MPV 10.5, Immature Gran % (Auto) 0.600, Neut % (Auto) 64.8, Lymph % (Auto) 19.8, [place] % (Auto) 8.5, Eos % (Auto) 5.2 H, Baso % (Auto) 1.1 H, Absolute Neuts (auto) 4.3, Nucleated RBC % 0 03/17/21 06:30: Sodium 141, Potassium 4.0, Chloride 110 H, Carbon Dioxide 21.0, Anion Gap 10, BUN 37 H, Creatinine 2.01 H, Est GFR (MDRD) Af Amer 42 L, Est GFR (MDRD) Non-Af 35 L, BUN/Creatinine Ratio 18.4, Glucose 133 H, Calcium 8.5 Rhythm: EKG: ECHO: Stress Test: Cardiac Cath: PCI: CT Surgery: Holter monitor: EPS: PPM: CXR: Chest CT Scan: Physical Exam Const oriented x3 and healthy appearing Orientation / Consciousness: awake HEENT normocephalic Eyes PERRL and conjunctivae normal Neck supple, no JVD and no carotid bruits Chest inspection of chest normal Resp normal respiratory effort and clear to auscultation bilaterally Cardio Palpation: normal PMI Rate: regular rate Rhythm: regular rhythm Heart Sounds: S1 normal and S2 normal Peripheral Pulses: pulses 2+ throughout GI normal to inspection, nondistended, normoactive bowel sounds Extremity normal to inspection and no clubbing, cyanosis or edema Psych mental status grossly normal Assessment & Plan Assessment/Plan (1) Elevated troponin: PLAN: He is have evidence of an elevated troponin. He underwent a cardiac catheterization today which demonstrated the following: Short left main coronary artery. Severely diseased left anterior descending artery. Severely diseased left circumflex artery. Severely diseased right coronary artery. Based on the above angiographic findings the patient will be a candidate for coronary artery bypass surgery. Arrangements will be made to transfer the patient to a tertiary care facility. Thank you for allowing me to participate in the care of your patient. Please don't hesitate to call if any issues arise.
--- NOTE | 2021-03-17 08:16 | CL.D_ITS ---
Patient Name: ROSI CORNELIUS Study Date: 03/17/2021 Performing: Nicho Boogie MD Ht: 68 inches 173 cm : 1950 Wt: 176.6 lbs 80 kg Age: 70 Gender: male BSA: 1.94 PROCEDURE(S) PERFORMED [id number] CLINICAL PROFILE AND INDICATIONS Indications: Suspected CAD Heart Failure: NYHA Class: 2, Newly Diagnosed: Yes, Heart Failure Type: Diastolic Stress/Imaging Date: 03/15/21ress Test with SPECT MPI: Positive Intermediate Risk CONCLUSIONS Severe triple-vessel disease with preserved left ventricular systolic function and stage III renal dy sfunction. RECOMMENDATIONS Surgery consult for coronary revascularization DESCRIPTION OF PROCEDURE The patient arrived to the procedure lab. The risks and benefits of the procedure as well as a full d escription of our services here and current unavailability of surgical backup were fully explained to the patient and/or their significant other prior to the catheterization. The Timeout was completed, verifying the correct patient and procedure. The patient's procedural site was prepped and draped in the usual fashion. Local anesthetic was given subcutaneously to right radial region with Lidocaine 2% . Using a modified Seldinger technique, arterial access was obtained via the right radial artery, a 6 Fr sheath was inserted. Left Coronary Artery selective angiography was performed in multiple views u sing a 5 Fr. 4.0 [place] catheter. Right Coronary Artery selective angiography was then performed in mu ltiple views using a 5 Fr. 4.0 [place] catheter.The arterial sheath was pulled and a TR Band was applie d for hemostasis CORONARY ANGIOGRAPHY DOMINANCE: Co- Dominant LEFT HEART ASSESSMENT Left Ventricular Ejection Fraction: by Echo 60 % Normal LV wall motion Normal Left Ventricular systolic function LEFT MAIN: Mild calcification LEFT ANTERIOR DESCENDING ARTERY: Severely diseased left anterior descending artery with multiple area s of 80 to 90% stenosis noted in the proximal mid and distal vessel CIRCUMFLEX ARTERY: Codominant left circumflex artery with proximal 30%, mid 70%, and distal 80% steno sis noted. RIGHT CORONARY ARTERY: Codominant right coronary artery with proximal 60%, mid 90%, and distal 90% st enosis. COMPLICATIONS No Complications PROCEDURE MEDICATIONS Versed 1 mg IV Fentanyl 50 mcg IV Oxygen: 2 L/min via nasal cannula Heparin given IA 03/17/2021 07:57:10 Verapamil 2.5mg, Ntg 100mcgs, 2000 units of Heparin given IA 03/17/2021 07:57:10 SUMMARY OF HEMODYNAMIC DATA Time AIR REST ECG 07:46:50 AO 130/55 (80) SA 07:59:06 Signed By Nicho Boogie MD On 03/17/2021 08:15:15 Nicho Boogie MD
[2021-03-17] MEDS: 0.9% Normal Saline 1,000 ML 100 ML IV (08:45)
[2021-03-17] MEDS: Potassium Chloride Oral Tablet 20 MEQ 40 MEQ PO (09:55)
--- NOTE | 2021-03-17 10:25 | PCM.DC.SUM ---
Documented by User: Sherice Rausch NP, [employer]-C 03/17/21 10:41 Providers Date of Admission: 03/12/21 Primary Care Physician: Dr. Brayden Marley MD Consultations 03/13/21 16:28 Consult: Cardiology Routine Consulting Provider: Vivek Lowry Reason for Consult: Admit w/ CHF presentation, enzymes elevated 0.3 range, Chest pain EMERGENT Consult: No MD Notified: Yes Date Notified:: 03/13/21 Time Notified: 16:28 Method of Notification: Text Reason For Visit: heart failure Diagnosis Discharge Diagnosis (1) Elevated troponin: Status: Acute Code(s): R77.8 - Other specified abnormalities of plasma proteins Medications at Discharge Home Medications metformin 500 mg PO BID 03/12/21 amlodipine 10 mg PO DAILY 03/13/21 atorvastatin 20 mg PO QHS 03/13/21 glipizide 10 mg PO BID 03/13/21 hydrochlorothiazide 25 mg PO DAILY 03/13/21 lisinopril 40 mg PO DAILY 03/13/21 nifedipine 60 mg PO DAILY 03/13/21 Hospital Course Operations None Procedures 2-D Echocardiogram and Cardiac catheterization Summary of Care Provided Minutes Spent on Discharge: 35 Hospital Course: Patient is a 70-year-old male admitted 03/12/2021 due to shortness of breath. 1. Acute heart failure with preserved ejection fraction-BNP 430. CTA negative for PE, trace bilateral pleural effusions. Echocardiogram demonstrates an EF of 60%, mild mitral valve insufficiency. Oxygen stable on room air, not documented to be hypoxic. Further Lasix discontinued due to renal function. Stable. 2. Severe triple-vessel CAD-cardiology consulted during admission. Patient underwent heart cath 03/17/2021 which showed severe triple-vessel disease involving left anterior descending artery, circumflex artery and right coronary artery. Patient will be transferred to tertiary facility for coronary revascularization consult. Continue aspirin, statin, beta-ericka. Transfer to [facility]. 3. Hypertension-HCTZ/Lisinopril held due to renal function. Continue nifedipine. Initiated on carvedilol 6.25 mg twice daily and hydralazine 25 mg 3 times daily. 4. Presumed CKD stage IIIb-Unknown baseline, records requested [facility], not yet received. Suspect CKD stage IIIb as labs have remained stable. 5. Type 2 diabetes mellitus-oral regimen on hold. Accu-Cheks with sliding scale insulin. 6. Hyperlipidemia-continue statin. Physical Exam Const alert, oriented x3 and no apparent distress Orientation / Consciousness: awake, oriented to person, oriented to place and oriented to time HEENT normocephalic and moist oral mucous membranes Eyes PERRL, EOMs intact bilaterally and conjunctivae normal Neck no lymphadenopathy Resp normal respiratory effort and clear to auscultation bilaterally Cardio regular rate, regular rhythm and no murmurs Peripheral Pulses: pulses 2+ throughout GI normal to inspection, nondistended, normoactive bowel sounds, non-tender and non-distended Extremity normal to inspection Skin no rashes or lesions noted Lesions: no lesions Rashes: no rashes Trauma: no lacerations or abrasions Neuro oriented x3 Sensorium / Orientation: awake and alert Psych affect normal Patient seen and examined prior to discharge. Physical assessment as noted above. Patient is stable for discharge with follow up recommendations as noted above. This patient was seen by KIMBERLY Hernandez under the supervision of Dr. Alejandre. ABG / Lab / Microbiology Data Result Diagrams: 03/17/21 06:30 03/17/21 06:30 Laboratory: Laboratory Results - last 24 hr 03/16/21 03/16/21 03/16/21 11:38 17:09 21:01 WBC RBC Hgb Hct MCV MCH MCHC RDW Std Deviation RDW Coeff of Joey Plt Count MPV Immature Gran % (Auto) Neut % (Auto) Lymph % (Auto) Millard % (Auto) Eos % (Auto) Baso % (Auto) Absolute Neuts (auto) Absolute Lymphs (auto) Nucleated RBC % Sodium Potassium Chloride Carbon Dioxide Anion Gap BUN Creatinine Estim Creat Clear Calc Est GFR (MDRD) Af Amer Est GFR (MDRD) Non-Af BUN/Creatinine Ratio Glucose Calcium POC Glucose 283 H 134 H 159 H 03/17/21 03/17/21 03/17/21 06:30 06:30 06:48 WBC 6.6 RBC 3.67 L Hgb 10.8 L Hct 32.0 L MCV 87.2 MCH 29.4 MCHC 33.8 RDW Std Deviation 38.3 RDW Coeff of Joey 11.9 Plt Count 330 MPV 10.5 Immature Gran % (Auto) 0.600 Neut % (Auto) 64.8 Lymph % (Auto) 19.8 Millard % (Auto) 8.5 Eos % (Auto) 5.2 H Baso % (Auto) 1.1 H Absolute Neuts (auto) 4.3 Absolute Lymphs (auto) 1.31 Nucleated RBC % 0 Sodium 141 Potassium 4.0 Chloride 110 H Carbon Dioxide 21.0 Anion Gap 10 BUN 37 H Creatinine 2.01 H Estim Creat Clear Calc 32.14 Est GFR (MDRD) Af Amer 42 L Est GFR (MDRD) Non-Af 35 L BUN/Creatinine Ratio 18.4 Glucose 133 H Calcium 8.5 POC Glucose 141 H Microbiology: Microbiology 03/12/21 18:50 Nasal Secretion SARS-CoV-2 Antigen (Rapid) - Final Radiography Diagnostic Testing: Radiology Impression Chest CTA 03/13/21 08:15 IMPRESSION: 1. No central or segmental pulmonary embolism. 2. Trace bilateral pleural effusions. Electronically Signed: Jose G Thorne MD (Brooks) at 9:29 EDT , Service support , ADDENDUM: 03/17/21 0909 Meaningful Use Info Meaningful Use Diagnoses (Choose all that apply): CHF CHF LILLY/ARB ordered at discharge?: No Reason LILLY/ARB not ordered?: Worsening renal dysfunctn Documented LVEF (%): 60 Discharge Plan Admission Admit Date/Time: 03/12/21 22:47 Attending Provider: Benedict Alejandre Primary Care Provider: Brayden Marley Consulting Providers: Vivek Lowry Instructions Patient Instructions: ED Chest Pain, Noncardiac Discharge Orders/Prescriptions Prescriptions: No Action metformin 500 mg Tablet 500 mg PO BID RF: 0 atorvastatin 20 mg Tablet 20 mg PO QHS RF: 0 glipizide 10 mg Tablet 10 mg PO BID RF: 0 nifedipine 60 mg Tablet Extended Release 24hr 60 mg PO DAILY RF: 0 amlodipine 10 mg Tablet 10 mg PO DAILY RF: 0 hydrochlorothiazide 25 mg Tablet 25 mg PO DAILY RF: 0 lisinopril 40 mg Tablet 40 mg PO DAILY RF: 0 Referrals / Follow Up: Brayden Marley MD [Primary Care Provider] - Disposition Discharge Orders: Discharge Patient (Routine); Ordered 03/17/21 Ordered By: Sherice Rausch [employer] Documented by User: Dr. Benedict Alejandre DO 03/17/21 16:20 Providers Date of Admission: 03/12/21 Reason For Visit: heart failure Medications at Discharge Home Medications metformin 500 mg PO BID 03/12/21 amlodipine 10 mg PO DAILY 03/13/21 atorvastatin 20 mg PO QHS 03/13/21 glipizide 10 mg PO BID 03/13/21 hydrochlorothiazide 25 mg PO DAILY 03/13/21 lisinopril 40 mg PO DAILY 03/13/21 nifedipine 60 mg PO DAILY 03/13/21 Hospital Course Procedures Cardiac catheterization Summary of Care Provided Minutes Spent on Discharge: 32 Hospital Course: [id number] male presents with shortness of breath. Patient was found to have acute heart failure with preserved ejection fraction. Patient echocardiogram on the fifth that showed an EF of 60%. Patient did undergo cardiac catheterization showed three-vessel disease involving left anterior descending, circumflex and right coronary artery. Cardiology reached out to [facility] and patient was accepted and transferred there in stable condition. Physical Exam Const alert and oriented x3 Resp normal respiratory effort and clear to auscultation bilaterally Cardio regular rate, regular rhythm, S1 normal heart sound and S2 normal heart sound GI normal to inspection, nondistended, normoactive bowel sounds, non-tender and non-distended ABG / Lab / Microbiology Data Result Diagrams: 03/17/21 06:30 03/17/21 06:30 Discharge Plan Admission Admit Date/Time: 03/12/21 22:47 Attending Provider: Benedict Alejandre Primary Care Provider: Brayden Marley Consulting Providers: Vivek Lowry Instructions Patient Instructions: ED Chest Pain, Noncardiac Discharge Orders/Prescriptions Prescriptions: No Action metformin 500 mg Tablet 500 mg PO BID RF: 0 atorvastatin 20 mg Tablet 20 mg PO QHS RF: 0 glipizide 10 mg Tablet 10 mg PO BID RF: 0 nifedipine 60 mg Tablet Extended Release 24hr 60 mg PO DAILY RF: 0 amlodipine 10 mg Tablet 10 mg PO DAILY RF: 0 hydrochlorothiazide 25 mg Tablet 25 mg PO DAILY RF: 0 lisinopril 40 mg Tablet 40 mg PO DAILY RF: 0 Referrals / Follow Up: Brayden Marley MD [Primary Care Provider] - Disposition Discharge Orders: Discharge Patient (Routine); Ordered 03/17/21 Ordered By: Sherice Rausch [employer] Visit Charges Inpatient E&M: 70610 Disch Hosp
--- NOTE | 2021-03-17 10:58 | PHA.DC.MR ---
Pharmacy Service has performed discharge medication reconciliation for this patient. Transfer to [facility] The patient's discharge medication list was reviewed for discrepancies and discrepancies were resolved. Home Medications metformin 500 mg PO BID 03/12/21 amlodipine 10 mg PO DAILY 03/13/21 atorvastatin 20 mg PO QHS 03/13/21 glipizide 10 mg PO BID 03/13/21 hydrochlorothiazide 25 mg PO DAILY 03/13/21 lisinopril 40 mg PO DAILY 03/13/21 nifedipine 60 mg PO DAILY 03/13/21
--- NOTE | 2021-03-17 10:59 | NURSING ---
Son Traci notified of transfer to [facility] for surgical consult.
[2021-03-17] MEDS: 0.9% Saline Lock 10 ML Syringe IV (11:37)
== END 2021-03-17 12:20 | disposition short-term general hospital (02) | DRG 286 ==
LOC: ED 19:11 → PCU 21:32
PROVIDERS: Family Medicine; Nurse Practitioner Family; Admitting Provider Hospitalist; Emergency Provider Emergency Medicine; PCP Family Medicine
DX: I13.0 Hypertensive heart and chronic kidney disease with heart failure and stage 1 through stage 4 chronic kidney disease, or unspecified chronic kidney disease (principal); I50.31 Acute diastolic (congestive) heart failure; I16.1 Hypertensive emergency; N18.32 Chronic kidney disease, stage 3b; E11.22 Type 2 diabetes mellitus with diabetic chronic kidney disease; E11.65 Type 2 diabetes mellitus with hyperglycemia; I25.10 Atherosclerotic heart disease of native coronary artery without angina pectoris; E78.5 Hyperlipidemia, unspecified; Z66 Do not resuscitate; Z79.82 Long term (current) use of aspirin; Z79.4 Long term (current) use of insulin; Z79.899 Other long term (current) drug therapy
CPT/HCPCS: 36415; 71045; 71275; 78452; 80048; 80053; 80061; 82962; 83605; 83735; 83880; 84439; 84443; 84484; 85025; 85379; 87426; 93005; 93017; 93306; 93454; 94640; 99152; 99251; 99285; A9500; J7030; Q9957; Q9967; A4216; C1769; C1894; C8929; G0463; J1940

== ENCOUNTER → 2021-04-28 09:21 | Outpatient (CLI) | payer MEDICARE, OTHER, SELFPAY ==
[2021-04-25 08:27] VITALS: BMI 30.1
[2021-04-28 10:04] LABS: Hematocrit 28.7 % (40-54); Hemoglobin 9.4 g/dL (13.0-16.5); Mean Corp Hgb Conc 32.8 g/dL (32-36); Mean Corpuscular Hgb 27.8 pg (27.0-32.0); Mean Corpuscular Volume 84.9 fL (80-94); Mean Platelet Vol. 11.1 fl (6.2-12.0); Platelet Count 280 K/mm3 (150-450); RBC Distribution Width CV 11.9 % (11.6-14.6); RBC Distribution Width SD 36.8 fl (35.1-43.9); Red Blood Count 3.38 M/mm3 (4.6-6.2); White Blood Count 5.5 K/mm3 (4.4-11.0)
[2021-04-28 10:48] LABS: Anion Gap 10 (5-15); BUN 30 mg/dL (7-18); BUN/Creat Ratio 16.8 RATIO (10-20); Calcium,Total 8.9 mg/dL (8.5-10.1); Chloride 105 mmol/L (98-107); Creatinine, Serum 1.79 mg/dL (0.70-1.30); EST Glomerular Filtration Rate 40 mL/min (>60); Est Glom Filt Rate - Afr Amer 48 mL/min (>60); Glucose 229 mg/dL (74-106); Potassium 3.5 mmol/L (3.5-5.1); Sodium Level 139 mmol/L (136-145)
== END ==
PROVIDERS: PCP Family Medicine; Referring Provider Internal Medicine Cardiovascular Disease; Visit Provider Internal Medicine Cardiovascular Disease
DX: I50.30 Unspecified diastolic (congestive) heart failure (principal); I25.2 Old myocardial infarction; Z95.1 Presence of aortocoronary bypass graft
CPT/HCPCS: 36415; 80048; 85027

== ENCOUNTER → 2021-06-23 08:34 | Outpatient (CLI) | payer MEDICARE, OTHER, SELFPAY ==
[2021-04-25 08:27] VITALS: BMI 30.1
--- NOTE | 2021-06-23 08:35 | ECHOD_ITS ---
Reason For Study: S/P CABG Procedure This was a 2D Doppler, Color Flow transthoracic echocardiogram. Exam performed in department. Left Ventricle Normal LV size. Mild concentric left ventricular hypertrophy. Left ventricular systolic function is normal. The estimated ejection fraction is 60 %. Stage 2 diastolic dysfunction. No regional wall motion abnormalities noted. Right Ventricle Normal RV size. Normal systolic function. Atria The left atrium is mildly enlarged. Normal right atrium. Mitral Valve Normal mitral valve. Mild (1+) eccentric mitral valve insufficiency. Tricuspid Valve Normal tricuspid valve. Mild (1+) tricuspid valve insufficiency. Pulmonary artery systolic pressure is 30 mmHg. Aortic Valve Normal aortic valve. Trisinus/trileaflet aortic valve. Pulmonic Valve Normal pulmonic valve. Great Vessels Normal aortic root. The pulmonary artery is normal size. Normal inferior vena cava. Pericardium/Pleural No pericardial effusion. MMode/2D Measurements & Calculations LVIDd: 4.8 cm IVSd: 1.3 cm Ao root diam: 3.1 cm LVIDs: 3.4 cm LVPWd: 1.3 cm RVDd: 4.3 cm FS: 28.6 % LAV(MOD-bp): 79.0 ml LA A4 area: 25.2 cm2 LA dimension(2D): 4.8 cm LAV(MOD-bp) Indexed: 39.1 ml/m2 LAV(MOD-sp2): 69.3 ml LAV(MOD-sp4): 88.2 ml RA A4 area: 19.8 cm2 Time Measurements MV dec time: 0.22 sec Doppler Measurements & Calculations MV E max leandro: 87.2 cm/sec Lat Peak E' Leandro: 13.3 cm/sec Med Peak E' Leandro: 6.5 cm/sec MV A max leandro: 52.1 cm/sec E/E' lat: 6.6 E/E' med: 13.5 MV E/A: 1.7 Ao V2 max: 114.1 cm/sec LV V1 max: 91.5 cm/sec PA V2 max: 89.4 cm/sec Ao max P.2 mmHg LV V1 max P.3 mmHg Ao V2 mean: 85.4 cm/sec Ao mean P.1 mmHg Ao V2 VTI: 25.5 cm TR max leandro: 256.3 cm/sec TR max P.4 mmHg ECHO/Echo Complete Interpretation Summary Normal LV size. Mild concentric left ventricular hypertrophy. Left ventricular systolic function is normal. The estimated ejection fraction is 60 %. Stage 2 diastolic dysfunction. The left atrium is mildly enlarged. Ordering Physician: Nicho Boogie Referring Physician: Brayden Marley Performed By: Fiona Grigsby, VINCE, RVT
== END ==
PROVIDERS: PCP Family Medicine; Referring Provider Internal Medicine Cardiovascular Disease; Visit Provider Internal Medicine Cardiovascular Disease
DX: I50.30 Unspecified diastolic (congestive) heart failure (principal); Z95.1 Presence of aortocoronary bypass graft; I25.10 Atherosclerotic heart disease of native coronary artery without angina pectoris; R06.02 Shortness of breath
CPT/HCPCS: 93306

== ENCOUNTER → 2021-06-30 11:38 | Outpatient (CLI) | payer MEDICARE, OTHER, SELFPAY ==
--- NOTE | 2021-06-30 11:39 | RAD_ITS ---
STUDY: X-RAY CHEST REASON FOR EXAM: Male, 70 years old. COUGH TECHNIQUE: PA and lateral views of the chest. COMPARISON: 03/12/2021 FINDINGS: Interval median sternotomy. The lungs are clear and expanded. There is no demonstrated pleural abnormality. Normal size heart. Normal mediastinum and brennan. Normal visualized pulmonary arteries. Normal visualized aortic arch and descending thoracic aorta. Normal visualized thoracic spine. Normal visualized ribs, clavicles, and shoulders. There is no demonstrated abnormality of the visualized soft tissue structures of the upper abdomen. RAD/Chest PA and Lateral IMPRESSION: No active disease. Electronically Signed: Octavio Canseco MD at 9:36 EDT Tel , Service support ,
== END ==
PROVIDERS: PCP Family Medicine; Referring Provider Family Medicine; Visit Provider Family Medicine
DX: J40 Bronchitis, not specified as acute or chronic (principal)
CPT/HCPCS: 71046

== ENCOUNTER → 2021-09-12 10:28 | Outpatient (CLI) | payer MEDICARE, OTHER, SELFPAY ==
--- NOTE | 2021-09-12 10:32 | RAD_ITS ---
STUDY: X-RAY CHEST REASON FOR EXAM: Male, 71 years old. CHF TECHNIQUE: PA and lateral COMPARISON: 06/30/2021 FINDINGS: The lungs are clear and expanded. There is no demonstrated pleural abnormality. Postop change status post median sternotomy and CABG Normal size heart. Normal mediastinum and brennan. Normal visualized pulmonary arteries. Mildly calcified aortic arch and descending thoracic aorta. Normal visualized thoracic spine. Normal visualized ribs, clavicles, and shoulders. There is no demonstrated abnormality of the visualized soft tissue structures of the upper abdomen. RAD/Chest PA and Lateral IMPRESSION: No acute cardiopulmonary pathology status post CABG Electronically Signed: Maximo Patten MD at 16:51 EDT , Service support ,
== END ==
PROVIDERS: PCP Family Medicine; Referring Provider Family Medicine; Visit Provider Family Medicine
DX: N18.30 Chronic kidney disease, stage 3 unspecified (principal); I50.9 Heart failure, unspecified
CPT/HCPCS: 71046

== ENCOUNTER 2022-01-02 14:10 | Outpatient (CLI) | payer MEDICARE, SELFPAY ==
--- NOTE | 2022-01-02 14:17 | US_ITS ---
STUDY: RENAL ULTRASOUND - COMPLETE REASON FOR EXAM: Male, 71 years old. ACUTE KIDNEY INJURY TECHNIQUE: Ultrasound evaluation of the kidneys was performed with real-time and static cardoso-scale imaging. COMPARISON: None. FINDINGS: RIGHT KIDNEY: with moderate renal atrophy. The right kidney measures 6.4 cm x 3.5 cm x 3 cm. There is diffuse thinning of the renal cortex. The renal cortex measures 0.8 cm. There is no right renal mass or cyst. There are no right renal calculi. There is no right hydronephrosis. DISTAL RIGHT URETER: There is non-visualization of the distal right ureter. There is no demonstrated right ureterovesical junction calculus. There is no demonstrated right ureteral jet. LEFT KIDNEY: Normal location of the left kidney, which is normal in size. The left kidney measures 12.3 cm x 6.5 cm x 6.8 cm. There is a normal cortex of the left kidney. The renal cortex measures 1.9 cm. There is a 3.6 cm x 3.5 cm x 3.7 cm left renal cyst. There are no left renal calculi. There is no left hydronephrosis. DISTAL LEFT URETER: There is non-visualization of the distal left ureter. There is no demonstrated left ureterovesical junction calculus. There is a visualized left ureteral jet. BLADDER: The distended urinary bladder has a volume of 88 ml. There is a normal wall thickness of the distended urinary bladder. There is no demonstrated mass within the urinary bladder. There are no demonstrated bladder calculi. Moderate ascites. US/Kidney and Bladder IMPRESSION: Right renal atrophy. Left renal cyst. Moderate ascites. Electronically Signed: Андрей Shay MD at 15:25 EST ,
== END 2022-01-02 23:59 | disposition home or self-care (01) ==
LOC: US 14:15
PROVIDERS: PCP Family Medicine; Referring Provider Internal Medicine Nephrology; Visit Provider Internal Medicine Nephrology
DX: N17.9 Acute kidney failure, unspecified (principal)
CPT/HCPCS: 76770

== ENCOUNTER → 2022-04-24 | Outpatient (CLI) | payer MEDICARE, SELFPAY ==
[2022-04-24 10:02] LABS: Hematocrit 36.9 % (40-54); Hemoglobin 12.2 g/dL (13.0-16.5); Mean Corp Hgb Conc 33.1 g/dL (32-36); Mean Corpuscular Hgb 27.9 pg (27.0-32.0); Mean Corpuscular Volume 84.2 fL (80-94); Mean Platelet Vol. 10.7 fl (6.2-12.0); Platelet Count 272 K/mm3 (150-450); RBC Distribution Width CV 13.3 % (11.6-14.6); RBC Distribution Width SD 41.5 fl (35.1-43.9); Red Blood Count 4.38 M/mm3 (4.6-6.2); White Blood Count 7.4 K/mm3 (4.4-11.0)
[2022-04-24 10:15] LABS: Protein, Urine (Random) 183.4 mg/dL (<11.9); Protein:Creat Ratio 7109 mg/g CRE (0-200)
[2022-04-24 10:16] LABS: PTHIN 131.7 pg/mL (18.4-80.1)
[2022-04-24 10:20] LABS: Vitamin D,25 Hydroxy 33.8 ng/mL
[2022-04-24 10:25] LABS: Albumin, Serum 3.4 g/dL (3.2-5.0); BUN 67 mg/dL (7-18); BUN/Creat Ratio 32.4 RATIO (10-20); Calcium,Total 8.6 mg/dL (8.5-10.1); Chloride 103 mmol/L (98-107); Creatinine, Serum 2.07 mg/dL (0.70-1.30); EST Glomerular Filtration Rate 34 mL/min (>60); Est Glom Filt Rate - Afr Amer 41 mL/min (>60); Glucose 329 mg/dL (74-106); Phosphorus 3.8 mg/dL (2.5-4.9); Potassium 3.9 mmol/L (3.5-5.1); Sodium Level 134 mmol/L (136-145)
[2022-04-27 12:08] LABS: PROEL- A/G Ratio 0.9 (0.7-1.7); PROEL- Albumin 3.7 g/dL (2.9-4.4); PROEL- Alpha-1 Globulin 0.2 g/dL (0.0-0.4); PROEL- Alpha-2 Globulin 0.9 g/dL (0.4-1.0); PROEL- Beta Globulin 1.1 g/dL (0.7-1.3); PROEL- Gamma Globulin 1.8 g/dL (0.4-1.8); PROEL- Globulin, Total 4.1 g/dL (2.2-3.9); PROEL- TOTAL PROTEIN 7.8 g/dL (6.0-8.5)
== END | disposition home or self-care (01) ==
LOC: MTLAB 07:51
PROVIDERS: PCP Family Medicine; Referring Provider Internal Medicine Nephrology; Visit Provider Internal Medicine Nephrology
DX: N18.32 Chronic kidney disease, stage 3b (principal)
CPT/HCPCS: 36415; 80069; 82306; 82570; 83970; 84156; 84165; 85027

== ENCOUNTER 2023-01-19 12:29 | Emergency (ER) | payer MEDICARE, SELFPAY ==
[2023-01-19 12:30] VITALS: BP 241/107; PULSE 70; RESP 16; TEMP 36.6; O2SAT 100; BMI 29.9
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
[2023-01-19 15:01] LABS: Absolute Lymphocyte Count 1.04 X10^3/uL (0.83-4.51); Absolute Neutrophil Count 7.1 X10^3/uL (2.0-7.7); Basophil# 0.08 X10^3/uL; Basophil% 0.9 % (0-1); Eosinophil# 0.35 X10^3/uL; Eosinophils% 3.8 % (0-5); Hematocrit 31.7 % (40-54); Lymphocyte # 1.04 X10^3/ul (0.83-4.51); Lymphocyte % 11.3 % (19-41); Mean Corp Hgb Conc 34.7 g/dL (32-36); Mean Corpuscular Hgb 30.7 pg (27.0-32.0); Mean Corpuscular Volume 88.5 fL (80-94); Mean Platelet Vol. 10.6 fl (6.2-12.0); Monocyte# 0.62 X10^3/uL; Monocyte% 6.7 % (0-10); NRBC Flagged by Analyzer 0 % (0-5); Neutrophil % 76.9 % (47-70); Platelet Count 278 K/mm3 (150-450); RBC Distribution Width CV 11.9 % (11.6-14.6); RBC Distribution Width SD 38.1 fl (35.1-43.9); Red Blood Count 3.58 M/mm3 (4.6-6.2); White Blood Count 9.2 K/mm3 (4.4-11.0)
[2023-01-19 15:14] LABS: Anion Gap 8 (5-15); BUN 36 mg/dL (7-18); BUN/Creat Ratio 13.2 RATIO (10-20); Calcium,Total 8.6 mg/dL (8.5-10.1); Chloride 109 mmol/L (98-107); Creatinine, Serum 2.72 mg/dL (0.70-1.30); EST Glomerular Filtration Rate 24 mL/min (>60); Est Glom Filt Rate - Afr Amer 30 mL/min (>60); Estimated Creatinine Clearance 23.05 ml/min; Glucose 139 mg/dL (74-106); Potassium 4.3 mmol/L (3.5-5.1); Sodium Level 140 mmol/L (136-145)
[2023-01-19 17:08] VITALS: BP 195/95
== END 2023-01-19 17:13 | disposition home or self-care (01) ==
PROVIDERS: Emergency Provider Emergency Medicine; PCP Family Medicine; Visit Provider Emergency Medicine
DX: S29.9XXA Unspecified injury of thorax, initial encounter (principal); I13.0 Hypertensive heart and chronic kidney disease with heart failure and stage 1 through stage 4 chronic kidney disease, or unspecified chronic kidney disease; I50.32 Chronic diastolic (congestive) heart failure; N18.30 Chronic kidney disease, stage 3 unspecified; I16.1 Hypertensive emergency; I25.10 Atherosclerotic heart disease of native coronary artery without angina pectoris; E78.5 Hyperlipidemia, unspecified; V53.5XXA Driver of pick-up truck or van injured in collision with car, pick-up truck or van in traffic accident, initial encounter; S20.20XA Contusion of thorax, unspecified, initial encounter; Z95.1 Presence of aortocoronary bypass graft; I25.2 Old myocardial infarction
CPT/HCPCS: 71260; 80048; 85025; 99284; Q9967; A4216

== ENCOUNTER → 2023-01-26 | Outpatient (CLI) | payer MEDICARE, SELFPAY ==
[2023-01-26 19:57] LABS: Hemoglobin A1c 7.4 % (3.8-5.6)
== END | disposition home or self-care (01) ==
LOC: BFHLAB 15:46
PROVIDERS: PCP Family Medicine; Referring Provider Family Medicine; Visit Provider Family Medicine
DX: E11.22 Type 2 diabetes mellitus with diabetic chronic kidney disease (principal)
CPT/HCPCS: 36415; 83036

== ENCOUNTER → 2023-04-29 | Outpatient (CLI) | payer MEDICARE, SELFPAY ==
[2023-04-29 17:46] LABS: Absolute Lymphocyte Count 1.23 X10^3/uL (0.83-4.51); Basophil# 0.08 X10^3/uL; Basophil% 1.1 % (0-1); Eosinophil# 0.32 X10^3/uL; Eosinophils% 4.4 % (0-5); Hematocrit 36.2 % (40-54); Hemoglobin 12.9 g/dL (13.0-16.5); Lymphocyte # 1.23 X10^3/ul (0.83-4.51); Lymphocyte % 16.9 % (19-41); Mean Corp Hgb Conc 35.6 g/dL (32-36); Mean Corpuscular Hgb 30.1 pg (27.0-32.0); Mean Corpuscular Volume 84.4 fL (80-94); Monocyte# 0.59 X10^3/uL; Monocyte% 8.1 % (0-10); NRBC Flagged by Analyzer 0 % (0-5); Neutrophil # 5.02 X10^3/uL (2.7-7.7); Neutrophil % 69.2 % (47-70); Platelet Count 215 K/mm3 (150-450); RBC Distribution Width CV 11.7 % (11.6-14.6); RBC Distribution Width SD 35.2 fl (35.1-43.9); Red Blood Count 4.29 M/mm3 (4.6-6.2); White Blood Count 7.3 K/mm3 (4.4-11.0)
[2023-04-29 18:01] LABS: ALB/GLOB Ratio 0.8 RATIO (0.9-2.4); AST(SGOT) 19 U/L (15-37); Alanine Aminotransfer ALT/SGPT 22 U/L (16-61); Albumin, Serum 3.1 g/dL (3.2-5.0); Alkaline Phosphatase 123 U/L (45-117); Anion Gap 7 (5-15); BUN 48 mg/dL (7-18); BUN/Creat Ratio 17.7 RATIO (10-20); Calcium,Total 8.3 mg/dL (8.5-10.1); Chloride 106 mmol/L (98-107); Cholesterol 133 mg/dL (200); Creatinine, Serum 2.71 mg/dL (0.70-1.30); EST Glomerular Filtration Rate 25 mL/min (>60); Est Glom Filt Rate - Afr Amer 30 mL/min (>60); Glucose 173 mg/dL (74-106); High Density Lipoprotein 37 mg/dL; Phosphorus 3.8 mg/dL (2.5-4.9); Potassium 3.6 mmol/L (3.5-5.1); Protein, Total 7.1 g/dL (6.4-8.2); Sodium Level 138 mmol/L (136-145); Triglycerides 231 mg/dL; Very Low Density Lipoprotein 46 mg/dL (5-40)
[2023-04-29 18:28] LABS: Hemoglobin A1c 7.8 % (3.8-5.6)
[2023-04-30 07:54] LABS: PTHIN 185.8 pg/mL (18.4-80.1)
== END | disposition home or self-care (01) ==
LOC: BFHLAB 14:50
PROVIDERS: PCP Family Medicine; Visit Provider Family Medicine
DX: E11.21 Type 2 diabetes mellitus with diabetic nephropathy (principal); E11.22 Type 2 diabetes mellitus with diabetic chronic kidney disease; N25.81 Secondary hyperparathyroidism of renal origin; N18.30 Chronic kidney disease, stage 3 unspecified; I25.10 Atherosclerotic heart disease of native coronary artery without angina pectoris
CPT/HCPCS: 36415; 80053; 80061; 83036; 83970; 84100; 85025

== ENCOUNTER → 2023-11-15 | Outpatient (CLI) | payer MEDICARE, SELFPAY ==
[2023-11-15 12:20] LABS: Absolute Lymphocyte Count 0.95 X10^3/uL (0.83-4.51); Absolute Neutrophil Count 6.4 X10^3/uL (2.0-7.7); Basophil# 0.07 X10^3/uL; Basophil% 0.8 % (0-1); Eosinophil# 0.46 X10^3/uL; Eosinophils% 5.4 % (0-5); Hematocrit 34.9 % (40-54); Hemoglobin 12.3 g/dL (13.0-16.5); Lymphocyte # 0.95 X10^3/ul (0.83-4.51); Lymphocyte % 11.2 % (19-41); Mean Corp Hgb Conc 35.2 g/dL (32-36); Mean Corpuscular Hgb 29.6 pg (27.0-32.0); Mean Corpuscular Volume 84.1 fL (80-94); Mean Platelet Vol. 11.6 fl (6.2-12.0); NRBC Flagged by Analyzer 0 % (0-5); Neutrophil % 75.1 % (47-70); Platelet Count 251 K/mm3 (150-450); RBC Distribution Width CV 11.9 % (11.6-14.6); RBC Distribution Width SD 35.8 fl (35.1-43.9); Red Blood Count 4.15 M/mm3 (4.6-6.2); White Blood Count 8.5 K/mm3 (4.4-11.0)
[2023-11-15 13:13] LABS: PTHIN 304.3 pg/mL (18.4-80.1)
[2023-11-15 13:16] LABS: Anion Gap 9 (5-15); BUN 44 mg/dL (7-18); BUN/Creat Ratio 16.5 RATIO (10-20); Calcium,Total 8.3 mg/dL (8.5-10.1); Chloride 103 mmol/L (98-107); Creatinine, Serum 2.66 mg/dL (0.70-1.30); EST Glomerular Filtration Rate 25 mL/min (>60); Est Glom Filt Rate - Afr Amer 30 mL/min (>60); Glucose 218 mg/dL (74-106); Potassium 3.2 mmol/L (3.5-5.1); Sodium Level 138 mmol/L (136-145)
== END | disposition home or self-care (01) ==
LOC: BFHLAB 11:12
PROVIDERS: PCP Family Medicine; Visit Provider Family Medicine
DX: I12.9 Hypertensive chronic kidney disease with stage 1 through stage 4 chronic kidney disease, or unspecified chronic kidney disease (principal); N18.30 Chronic kidney disease, stage 3 unspecified; I25.10 Atherosclerotic heart disease of native coronary artery without angina pectoris
CPT/HCPCS: 36415; 80048; 83970; 85025

== ENCOUNTER 2023-11-30 19:26 | Outpatient (CLI) | payer MEDICARE, SELFPAY | END 2023-11-30 23:59 | disposition home or self-care (01) | LOC: SL 19:26 | PROVIDERS: PCP Family Medicine; Referring Provider Family Medicine; Visit Provider Family Medicine | DX: G47.10 Hypersomnia, unspecified (principal); G47.33 Obstructive sleep apnea (adult) (pediatric) | CPT/HCPCS: 95811 ==

== ENCOUNTER → 2024-05-09 | Outpatient (CLI) | payer MEDICARE, SELFPAY ==
[2024-05-09 17:43] LABS: Absolute Neutrophil Count 4.7 X10^3/uL (2.0-7.7); Basophil# 0.04 X10^3/uL; Basophil% 0.6 % (0-1); Eosinophil# 0.28 X10^3/uL; Eosinophils% 4.2 % (0-5); Hematocrit 24.2 % (40-54); Hemoglobin 7.9 g/dL (13.0-16.5); Lymphocyte % 16.5 % (19-41); Mean Corp Hgb Conc 32.6 g/dL (32-36); Mean Corpuscular Hgb 29.8 pg (27.0-32.0); Mean Corpuscular Volume 91.3 fL (80-94); Mean Platelet Vol. 11.2 fl (6.2-12.0); Monocyte# 0.49 X10^3/uL; Monocyte% 7.4 % (0-10); NRBC Flagged by Analyzer 0 % (0-5); Neutrophil # 4.71 X10^3/uL (2.7-7.7); Neutrophil % 70.8 % (47-70); Platelet Count 280 K/mm3 (150-450); RBC Distribution Width CV 12.9 % (11.6-14.6); RBC Distribution Width SD 43.2 fl (35.1-43.9); Red Blood Count 2.65 M/mm3 (4.6-6.2); White Blood Count 6.7 K/mm3 (4.4-11.0)
[2024-05-09 18:05] LABS: ALB/GLOB Ratio 0.8 RATIO (0.9-2.4); AST(SGOT) 14 U/L (15-37); Alanine Aminotransfer ALT/SGPT 22 U/L (16-61); Albumin, Serum 2.9 g/dL (3.2-5.0); Alkaline Phosphatase 93 U/L (45-117); Anion Gap 10 (5-15); BUN 30 mg/dL (7-18); BUN/Creat Ratio 11.2 RATIO (10-20); Calcium,Total 8.3 mg/dL (8.5-10.1); Chloride 106 mmol/L (98-107); Cholesterol 156 mg/dL (200); Creatinine, Serum 2.69 mg/dL (0.70-1.30); EST Glomerular Filtration Rate 25 mL/min (>60); Est Glom Filt Rate - Afr Amer 30 mL/min (>60); Globulin 3.6 g/dL (2.2-4.2); Glucose 210 mg/dL (74-106); High Density Lipoprotein 42 mg/dL; Potassium 3.6 mmol/L (3.5-5.1); Protein, Total 6.5 g/dL (6.4-8.2); Sodium Level 139 mmol/L (136-145); Triglycerides 183 mg/dL; Very Low Density Lipoprotein 37 mg/dL (5-40)
[2024-05-09 18:52] LABS: Hemoglobin A1c 5.4 % (3.8-5.6)
[2024-05-11 13:44] LABS: PTHIN 252.2 pg/mL (18.4-80.1)
== END | disposition home or self-care (01) ==
LOC: BFHLAB 14:50
PROVIDERS: PCP Family Medicine; Referring Provider Family Medicine; Visit Provider Family Medicine
DX: E11.69 Type 2 diabetes mellitus with other specified complication (principal); E11.22 Type 2 diabetes mellitus with diabetic chronic kidney disease; N18.32 Chronic kidney disease, stage 3b; I25.10 Atherosclerotic heart disease of native coronary artery without angina pectoris
CPT/HCPCS: 36415; 80053; 80061; 83036; 83970; 85025

== ENCOUNTER → 2024-05-15 | Outpatient (CLI) | payer MEDICARE, SELFPAY ==
[2024-05-15 12:49] LABS: Vitamin B12 349 pg/mL (211-911)
[2024-05-15 13:05] LABS: Ferritin 33 ng/mL (26-388); Iron 51 ug/dL (65-175); Iron Binding Capacity,Total 334 ug/dL (250-450); LDH 289 U/L (87-241); PERCENT IRON SATURATION 15.3 % (15.0-55.0)
== END | disposition home or self-care (01) ==
LOC: BFHLAB 08:28
PROVIDERS: PCP Family Medicine; Referring Provider Family Medicine; Visit Provider Family Medicine
DX: D64.9 Anemia, unspecified (principal)
CPT/HCPCS: 36415; 82607; 82728; 82746; 83540; 83550; 83615

== ENCOUNTER → 2024-08-15 | Outpatient (CLI) | payer MEDICARE, SELFPAY ==
[2024-08-15 15:17] LABS: Absolute Lymphocyte Count 1.01 X10^3/uL (0.83-4.51); Absolute Neutrophil Count 7.1 X10^3/uL (2.0-7.7); Basophil# 0.07 X10^3/uL; Basophil% 0.8 % (0-1); Eosinophil# 0.25 X10^3/uL; Eosinophils% 2.7 % (0-5); Hematocrit 35.7 % (40-54); Hemoglobin 12.4 g/dL (13.0-16.5); Lymphocyte # 1.01 X10^3/ul (0.83-4.51); Mean Corp Hgb Conc 34.7 g/dL (32-36); Mean Corpuscular Hgb 27.8 pg (27.0-32.0); Mean Platelet Vol. 11.7 fl (6.2-12.0); Monocyte% 7.6 % (0-10); NRBC Flagged by Analyzer 0 % (0-5); Neutrophil # 7.12 X10^3/uL (2.7-7.7); Neutrophil % 77.4 % (47-70); Platelet Count 270 K/mm3 (150-450); RBC Distribution Width CV 12.8 % (11.6-14.6); RBC Distribution Width SD 36.6 fl (35.1-43.9); Red Blood Count 4.46 M/mm3 (4.6-6.2); White Blood Count 9.2 K/mm3 (4.4-11.0)
[2024-08-15 15:41] LABS: Hemoglobin A1c 6.9 % (3.8-5.6)
[2024-08-15 15:59] LABS: ALB/GLOB Ratio 0.8 RATIO (0.9-2.4); AST(SGOT) 13 U/L (15-37); Alanine Aminotransfer ALT/SGPT 16 U/L (16-61); Albumin, Serum 3.4 g/dL (3.2-5.0); Alkaline Phosphatase 92 U/L (45-117); Anion Gap 13 (5-15); BUN 78 mg/dL (7-18); BUN/Creat Ratio 19.9 RATIO (10-20); Calcium,Total 8.3 mg/dL (8.5-10.1); Chloride 93 mmol/L (98-107); Creatinine, Serum 3.91 mg/dL (0.70-1.30); EST Glomerular Filtration Rate 16 mL/min (>60); Est Glom Filt Rate - Afr Amer 19 mL/min (>60); Ferritin 41 ng/mL (26-388); Globulin 4.1 g/dL (2.2-4.2); Glucose 204 mg/dL (74-106); Iron 100 ug/dL (65-175); Potassium 2.7 mmol/L (3.5-5.1); Protein, Total 7.5 g/dL (6.4-8.2); Sodium Level 132 mmol/L (136-145)
== END | disposition home or self-care (01) ==
LOC: BFHLAB 13:32
PROVIDERS: PCP Family Medicine; Referring Provider Family Medicine; Visit Provider Family Medicine
DX: E11.22 Type 2 diabetes mellitus with diabetic chronic kidney disease (principal); N18.32 Chronic kidney disease, stage 3b; D64.9 Anemia, unspecified
CPT/HCPCS: 36415; 80053; 82728; 83036; 83540; 85025

== ENCOUNTER → 2024-08-16 | Outpatient (CLI) | payer MEDICARE, SELFPAY ==
[2024-08-16 14:06] LABS: Anion Gap 16 (5-15); BUN 79 mg/dL (7-18); BUN/Creat Ratio 19.9 RATIO (10-20); Calcium,Total 8.6 mg/dL (8.5-10.1); Chloride 96 mmol/L (98-107); Creatinine, Serum 3.97 mg/dL (0.70-1.30); EST Glomerular Filtration Rate 16 mL/min (>60); Est Glom Filt Rate - Afr Amer 19 mL/min (>60); Glucose 164 mg/dL (74-106); Magnesium 1.9 mg/dL (1.6-2.6); Phosphorus 5.2 mg/dL (2.5-4.9); Potassium 2.7 mmol/L (3.5-5.1); Sodium Level 136 mmol/L (136-145)
== END | disposition home or self-care (01) ==
LOC: BFHLAB 10:44
PROVIDERS: PCP Family Medicine; Referring Provider Family Medicine; Visit Provider Family Medicine
DX: N18.32 Chronic kidney disease, stage 3b (principal); E87.6 Hypokalemia
CPT/HCPCS: 36415; 80048; 83735; 84100

== ENCOUNTER → 2024-08-21 | Outpatient (CLI) | payer MEDICARE, SELFPAY ==
[2024-08-21 13:17] LABS: Anion Gap 12 (5-15); BUN 97 mg/dL (7-18); BUN/Creat Ratio 23.3 RATIO (10-20); Calcium,Total 8.7 mg/dL (8.5-10.1); Chloride 96 mmol/L (98-107); Creatinine, Serum 4.17 mg/dL (0.70-1.30); EST Glomerular Filtration Rate 15 mL/min (>60); Est Glom Filt Rate - Afr Amer 18 mL/min (>60); Glucose 138 mg/dL (74-106); Phosphorus 5.3 mg/dL (2.5-4.9); Potassium 2.9 mmol/L (3.5-5.1); Sodium Level 136 mmol/L (136-145)
== END | disposition home or self-care (01) ==
LOC: BFHLAB 08:32
PROVIDERS: PCP Family Medicine; Referring Provider Family Medicine; Visit Provider Family Medicine
DX: N18.4 Chronic kidney disease, stage 4 (severe) (principal)
CPT/HCPCS: 36415; 80048; 84100

== ENCOUNTER → 2024-09-04 | Outpatient (CLI) | payer MEDICARE, SELFPAY ==
[2024-09-04 12:23] LABS: Anion Gap 7 (5-15); BUN 50 mg/dL (7-18); BUN/Creat Ratio 15.5 RATIO (10-20); Chloride 108 mmol/L (98-107); Creatinine, Serum 3.23 mg/dL (0.70-1.30); EST Glomerular Filtration Rate 20 mL/min (>60); Est Glom Filt Rate - Afr Amer 24 mL/min (>60); Glucose 228 mg/dL (74-106); Phosphorus 3.3 mg/dL (2.5-4.9); Potassium 3.7 mmol/L (3.5-5.1); Sodium Level 141 mmol/L (136-145)
== END | disposition home or self-care (01) ==
LOC: BFHLAB 08:30
PROVIDERS: PCP Family Medicine; Referring Provider Family Medicine; Visit Provider Family Medicine
DX: N18.32 Chronic kidney disease, stage 3b (principal)
CPT/HCPCS: 36415; 80048; 84100

== ENCOUNTER → 2024-09-05 | Outpatient (CLI) | payer MEDICARE, SELFPAY ==
[2024-09-05 12:34] LABS: Protein, Urine (Random) 247.2 mg/dL (<11.9); Protein:Creat Ratio 4247 mg/g CRE (0-200)
== END | disposition home or self-care (01) ==
LOC: POLAB3 11:59
PROVIDERS: PCP Family Medicine; Visit Provider Internal Medicine Nephrology
DX: N18.4 Chronic kidney disease, stage 4 (severe) (principal)
CPT/HCPCS: 82570; 84156

== ENCOUNTER → 2024-11-16 | Outpatient (CLI) | payer MEDICARE, SELFPAY ==
[2024-11-16 08:56] LABS: Albumin, Serum 3.7 g/dL (3.2-5.0); BUN 49 mg/dL (7-18); BUN/Creat Ratio 14.3 RATIO (10-20); Calcium,Total 9.2 mg/dL (8.5-10.1); Chloride 105 mmol/L (98-107); Creatinine, Serum 3.43 mg/dL (0.70-1.30); EST Glomerular Filtration Rate 19 mL/min (>60); Est Glom Filt Rate - Afr Amer 23 mL/min (>60); Glucose 180 mg/dL (74-106); Phosphorus 3.4 mg/dL (2.5-4.9); Potassium 3.5 mmol/L (3.5-5.1); Sodium Level 140 mmol/L (136-145)
[2024-11-16 08:59] LABS: PTHIN 271.4 pg/mL (18.4-80.1)
[2024-11-16 09:04] LABS: Vitamin D,25 Hydroxy 7.3 ng/mL
== END | disposition home or self-care (01) ==
LOC: LAB 08:19
PROVIDERS: PCP Family Medicine; Referring Provider Internal Medicine Nephrology; Visit Provider Internal Medicine Nephrology
DX: N18.4 Chronic kidney disease, stage 4 (severe) (principal); E21.1 Secondary hyperparathyroidism, not elsewhere classified
CPT/HCPCS: 36415; 80069; 82306; 83970

== ENCOUNTER → 2025-02-22 | Outpatient (CLI) | payer MEDICARE, SELFPAY ==
[2025-02-22 09:21] LABS: PTHIN 222 pg/mL (11-61)
[2025-02-22 09:38] LABS: Albumin, Serum 3.7 g/dL (3.4-4.8); Anion Gap 15 (5-15); BUN 37 mg/dL (4-19); BUN/Creat Ratio 13.6 RATIO (10-20); Calcium,Total 8.1 mg/dL (7.6-11.0); Carbon Dioxide 19.3 mmol/L (21.0-32.0); Chloride 107 mmol/L (98-108); Creatinine, Serum 2.74 mg/dL (0.70-1.20); EST Glomerular Filtration Rate 23 (>60); Glucose 174 mg/dL (70-99); Potassium 3.6 mmol/L (3.3-5.1); Sodium Level 141 mmol/L (133-145)
[2025-02-22 09:41] LABS: Vitamin D,25 Hydroxy 24.9 ng/mL (30-100)
== END | disposition home or self-care (01) ==
LOC: LAB 07:54
PROVIDERS: PCP Family Medicine; Referring Provider Internal Medicine Nephrology; Visit Provider Internal Medicine Nephrology
DX: N18.4 Chronic kidney disease, stage 4 (severe) (principal); E21.1 Secondary hyperparathyroidism, not elsewhere classified; E55.9 Vitamin D deficiency, unspecified
CPT/HCPCS: 36415; 80069; 82306; 83970

== ENCOUNTER → 2025-05-10 | Outpatient (CLI) | payer MEDICARE, SELFPAY ==
[2025-05-10 16:15] LABS: Cholesterol 127 mg/dL (<=200); Low Density Lipoprotein Calc. 60 mg/dL; Triglycerides 97 mg/dL; Very Low Density Lipoprotein 19 mg/dL (5-40); cholesterol:hdl ratio screen 2.69
== END | disposition home or self-care (01) ==
LOC: BFHLAB 13:39
PROVIDERS: PCP Family Medicine; Visit Provider Family Medicine
DX: I25.10 Atherosclerotic heart disease of native coronary artery without angina pectoris (principal)
CPT/HCPCS: 36415; 80061

== ENCOUNTER → 2025-08-24 | Outpatient (CLI) | payer MEDICARE, SELFPAY ==
[2025-08-24 11:03] LABS: Albumin, Serum 4.1 g/dL (3.4-4.8); Anion Gap 14 (5-15); BUN 56 mg/dL (4-19); BUN/Creat Ratio 17.0 RATIO (10-20); Calcium,Total 9.1 mg/dL (7.6-11.0); Carbon Dioxide 24.2 mmol/L (21.0-32.0); Chloride 103 mmol/L (98-108); Glucose 128 mg/dL (70-99); Potassium 3.9 mmol/L (3.3-5.1); Vitamin D,25 Hydroxy 27.3 ng/mL (30-100)
[2025-08-24 11:08] LABS: PTHIN 352 pg/mL (11-61)
== END | disposition home or self-care (01) ==
LOC: LAB 10:10
PROVIDERS: PCP Family Medicine; Referring Provider Internal Medicine Nephrology; Visit Provider Internal Medicine Nephrology
DX: E21.1 Secondary hyperparathyroidism, not elsewhere classified (principal); N18.4 Chronic kidney disease, stage 4 (severe); E55.9 Vitamin D deficiency, unspecified
CPT/HCPCS: 36415; 80069; 82306; 83970

== ENCOUNTER → 2025-09-06 | Outpatient (CLI) | payer MEDICARE, SELFPAY ==
[2025-09-06 13:00] LABS: PTHIN 175 pg/mL (11-61)
[2025-09-06 13:35] LABS: Albumin, Serum 3.8 g/dL (3.4-4.8); Anion Gap 12 (5-15); BUN 43 mg/dL (4-19); BUN/Creat Ratio 14.5 RATIO (10-20); Calcium,Total 9.2 mg/dL (7.6-11.0); Carbon Dioxide 21.0 mmol/L (21.0-32.0); Chloride 108 mmol/L (98-108); Glucose 148 mg/dL (70-99); Potassium 4.1 mmol/L (3.3-5.1)
== END | disposition home or self-care (01) ==
LOC: LAB 11:08
PROVIDERS: PCP Family Medicine; Referring Provider Internal Medicine Nephrology; Visit Provider Internal Medicine Nephrology
DX: E21.1 Secondary hyperparathyroidism, not elsewhere classified (principal); N18.4 Chronic kidney disease, stage 4 (severe)
CPT/HCPCS: 36415; 80069; 83970